=== PATIENT | female | born 1960 | race Caucasian/White ===

== ENCOUNTER 2019-04-28 09:48 | Day surgery (SDC) | payer OTHER ==
[~2019-04-28] VITALS: Ht 162.6 cm; Wt 71.0 kg
[~2019-04-28 09:48] MED LIST: CLIN150 PO; CLIN300 PO; Colace100 MG PO; HYDACE5 PO; IBUP800 PO; PHENY100ER; Percocet 7.5-31 EACH PO; RANI150; SERT100; SULTRIDS PO; SUMA25; Zofran Odt4 MG SL
[2019-04-28] MEDS ORDERED: Calcium Acetat667 MG (10:28)
[2019-04-28] MEDS ORDERED: CENTRUM SILVER1 EAC2 (10:28)
[2019-04-28] MEDS ORDERED: FAMO10 (10:29)
[2019-04-28] MEDS ORDERED: IBUP100S (10:30)
[2019-04-28] MEDS ORDERED: MAVYRET 100-401 EACH (10:31)
--- NOTE | 2019-04-28 10:34 | NUR ---
04/28/19 Mere4 Trang Leigh 1 TRY HAND RIGHT BLEW 2 TRY WRIST LEFT GOOD
== END 2019-04-28 11:53 | disposition home or self-care (01) ==
LOC: ORSCSDS 09:48
PROVIDERS: Internal Medicine Gastroenterology
PROC: 0DJ08ZZ Inspection of Upper Intestinal Tract, Via Natural or Artificial Opening Endoscopic (ICD-10-PCS; principal; 2019-04-28 11:15)
DX: K74.60 Unspecified cirrhosis of liver (principal); B19.20 Unspecified viral hepatitis C without hepatic coma; K44.9 Diaphragmatic hernia without obstruction or gangrene; R93.89 Abnormal findings on diagnostic imaging of other specified body structures; F41.8 Other specified anxiety disorders; J44.9 Chronic obstructive pulmonary disease, unspecified; F31.9 Bipolar disorder, unspecified; F17.210 Nicotine dependence, cigarettes, uncomplicated; Z79.899 Other long term (current) drug therapy
CPT/HCPCS: 82947; J2704; J7120

== ENCOUNTER 2019-05-12 10:16 | Inpatient (IN) | payer OTHER ==
[~2019-05-12] VITALS: Ht 172.7 cm; Wt 65.6 kg
[~2019-05-12 10:16] MED LIST changes: +Calcium Acetat667 MG; +Daily Multiple1 EACH PO; +FAMO10; +IBUP100S; +IMITREX100 MG PO; +MAVYRET 100-401 EACH; -SERT100; +SERT100 PO; -SUMA25
[2019-05-12 10:38] LABS: Hematocrit 38.7 % (33.0-51.0); Hemoglobin 13.7 g/dL (11.5-16.0); Mean Corpuscular HGB 30.5 pg (26.0-34.0); Mean Corpuscular HGB Conc 35.4 g/dL (31.5-36.5); Mean Corpuscular Volume 86 fL (80-100); Mean Platelet Volume 11.9 fL (9.1-12.4); Platelet Count 226 K/mm3 (150-400); RDW Coefficient Variation 13.9 % (11.7-14.2); RDW Standard Deviation 43.1 fL (35.1-46.3); Red Blood Cell Count 4.49 M/mm3 (3.80-5.20); White Blood Cell Count 42.63 K/mm3 (4.00-11.30)
[2019-05-12 10:51] LABS: PCO2 Arterial 37.6 mmHg (35-45); PO2 Arterial 36.7 mmHg (80-100); pH Blood Arterial 7.28 (7.35-7.45)
[2019-05-12 10:53] LABS: International Normalized Ratio 1.57; Prothrombin Time Results 16.4 Sec (9.7-11.5)
[2019-05-12 10:55] LABS: Alanine Aminotransfer (ALT/SGP 14 U/L (12-78); Albumin, Blood 1.7 g/dL (3.4-5.0); Albumin/Globulin Ratio 0.3 (0.8-1.8); Alk Phos 185 U/L (50-136); Anion Gap 15 mmol/L (6-16); Aspartate Aminotrans (AST/SGOT 54 U/L (12-37); Bilirubin, Total 4.2 mg/dL (0.1-1.0); Blood Urea Nitrogen 51 mg/dL (8-24); Bun/Creatinine Ratio 39.8 (12.0-20.0); CO2, Blood 19 mmol/L (21-32); Calcium, Blood 11.2 mg/dL (8.5-10.1); Chloride, Blood 105 mmol/L (98-108); Creatinine, Blood 1.28 mg/dL (0.40-1.00); Globulin, Blood 5.1 g/dL (2.2-4.0); Glomerular Filtration Rate 45 (60-); Glucose, Blood 116 mg/dL (70-99); Potassium, Blood 2.5 mmol/L (3.5-5.5); Sodium, Blood 139 mmol/L (136-145); Total Protein, Blood 6.8 g/dL (6.4-8.2); Troponin I <0.015 ng/mL (0.000-0.040)
[2019-05-12 11:05] LABS: BAND PERCENT MAN 1 % (0-8); BASOPHILS PERCENT MAN 0 % (0-2); EOSINOPHILS PERCENT MAN 0 % (0-6); LYMPHOCYTES PERCENT MAN 4 % (21-46); MONOCYTES PERCENT MAN 0 % (4-13); NEUTROPHILS ABSOLUTE MAN 40.92 K/mm3 (1.96-9.15); SEG NEUTROPHILS PERCENT MAN 95 % (41-73); TOTAL CELLS COUNTED 100
[2019-05-12 12:41] LABS: PCO2 Arterial 44.9 mmHg (35-45); PO2 Arterial 59.9 mmHg (80-100); pH Blood Arterial 7.27 (7.35-7.45)
[2019-05-12] MEDS ORDERED: OMEP20ER PO (12:44)
[2019-05-12] MEDS ORDERED: DOCU100 PO (12:46)
[2019-05-12] MEDS ORDERED: MAVYRET 100-401 EACH PO (14:16)
[2019-05-12] MEDS ORDERED: DIPH50 PO (14:17)
[2019-05-12] MEDS ORDERED: CALCIUM 600 +1 EA11 PO (14:17)
[2019-05-12] MEDS ORDERED: PROAIR RESPICL90 MCG INH (14:18)
[2019-05-12] MEDS ORDERED: EPIPEN0.3 MG/0.3 IM (14:18)
[2019-05-12] MEDS ORDERED: IBUP200 PO (14:18)
[2019-05-12 14:42] LABS: Source, Urine Catheter
[2019-05-12 14:45] LABS: Blood, Urine 1+ (Neg); Glucose Qualitative, Urine Neg (Neg); Ketones, Urine 1+ (Neg); Leukocyte Esterase, Urine 1+ (Neg); Nitrite, Urine Neg (Neg); Protein, Urine 2+ (Neg); Specific Gravity, Urine 1.015 (1.003-1.022); Urobilinogen, Urine 3+ (Normal)
[2019-05-12 14:57] LABS: U Amphetamine Screen Not Detected; U Barbituate Screen Not Detected; U Benzodiazapine Screen DETECTED; U Buprenorphine Screen Not Detected; U Cannabinoids Screen DETECTED; U Cocaine Screen Not Detected; U Methadone Screen Not Detected; U Methamphetamine Screen Not Detected; U Opiates Screen Not Detected; U Oxycodone Screen Not Detected; U Phencyclidine Screen Not Detected; U Propoxyphene Screen Not Detected
[2019-05-12 15:00] LABS: Appearance, Urine Clear (Clear); Bilirubin, Urine 2+ (Neg); Color, Urine Yellow (P-Yellow)
[2019-05-12 15:02] LABS: Red Blood Cells, Urine 0-2 /hpf (0-2); Squamous Epithelial Cells Rare /hpf (Few)
[2019-05-12 15:03] LABS: Amorphous Light (0-Heavy); Bacteria Few /hpf
[2019-05-12 15:29] LABS: Adenovirus Not Detected (NOT DETECT); Coronavirus 229E Not Detected (NOT DETECT); Coronavirus HKU1 Not Detected (NOT DETECT); Coronavirus NL63 Not Detected (NOT DETECT); Coronavirus OC43 Detected (NOT DETECT)
[2019-05-12 15:30] LABS: Bordetella pertussis Not Detected (NOT DETECT); Chlamydophila pneumoniae Not Detected (NOT DETECT); Human Metapneumovirus Not Detected (NOT DETECT); Human Rhinovirus/Enterovirus Not Detected (NOT DETECT); Influenza A/2009-H1 Not Detected (NOT DETECT); Influenza A/H1 Not Detected (NOT DETECT); Influenza A/H3 Not Detected (NOT DETECT); Influenza B Not Detected (NOT DETECT); Mycoplasma pneumoniae Not Detected (NOT DETECT); Parainfluenza Virus 1 Not Detected (NOT DETECT); Parainfluenza Virus 2 Not Detected (NOT DETECT); Parainfluenza Virus 3 Not Detected (NOT DETECT); Parainfluenza Virus 4 Not Detected (NOT DETECT); Respiratory Syncytial Virus Detected (NOT DETECT)
--- NOTE | 2019-05-12 16:13 | NUR ---
ASSUMED ARE OF PATIENT UPON HER ARRIVAL FROM ED AT 1530. ON BIPAP 16/12, 100% FIO2, RR 30-33, TOLERATING WELL BUT ENDORSES BEING ANXIOUS. A&O X 3, VERY [place]. LUNG SOUNDS WITH CRACKLES THROUGHOUT POSTERIOR LUNG MAYA, DIM IN UPPER LOBES. MONTES DRAINING DARK, MIKEL URINE. IVF INFUSING WITHOUT DIFFICULTY, BUT WILL NEED CENTRAL LINE ACCESS HER VEINS ARE QUITE FRAGILE AND SMALL. ENDORSES PAIN IN BUE. USED BEDPAN X 1, NO OUTPUT, IS PASSING GAS.
[2019-05-12] MEDS ORDERED: TIOT18 INH (16:42)
--- NOTE | 2019-05-12 19:27 | NUR ---
SHIFT SUMMARY: MAP DECREASED < 65; SPOKE TO DR. ULLOA IN PERSON, ORDERED LR 1 LITER BOLUS. AFTER BOLUS, BP INCREASED TO 91/58, MAP 72. HAVING SOME ANXIETY, MEDICATED X 1 WITH ATIVAN WITH GOOD EFFECT. POOR URINE OUTPUT, MIKEL. PICC PLACED IN LUZ, FLUSHING AND DRAWING WELL. DAUGHTER AT BEDSIDE SINCE PT ARRIVAL FROM ED.
[2019-05-13 03:54] LABS: Hematocrit 29.6 % (33.0-51.0); Hemoglobin 10.6 g/dL (11.5-16.0); Mean Corpuscular HGB 30.8 pg (26.0-34.0); Mean Corpuscular HGB Conc 35.8 g/dL (31.5-36.5); Mean Corpuscular Volume 86 fL (80-100); Mean Platelet Volume 11.4 fL (9.1-12.4); NRBC ABSOLUTE 0.03 K/mm3 (0.00-0.02); NRBC Auto 0.1 /100 WBC (0.0-0.2); Platelet Count 228 K/mm3 (150-400); RDW Coefficient Variation 14.4 % (11.7-14.2); Red Blood Cell Count 3.44 M/mm3 (3.80-5.20); White Blood Cell Count 30.39 K/mm3 (4.00-11.30)
[2019-05-13 04:13] LABS: Albumin, Blood 1.4 g/dL (3.4-5.0); Albumin/Globulin Ratio 0.3 (0.8-1.8); Bilirubin, Total 3.7 mg/dL (0.1-1.0); Bun/Creatinine Ratio 43.6 (12.0-20.0); Calcium, Blood 9.4 mg/dL (8.5-10.1); Creatinine, Blood 1.17 mg/dL (0.40-1.00); Globulin, Blood 4.2 g/dL (2.2-4.0); Magnesium, Blood 1.9 mg/dL (1.6-2.4); Phosphorus, Blood 3.4 mg/dL (2.5-4.9); Potassium, Blood 3.5 mmol/L (3.5-5.5); Total Protein, Blood 5.6 g/dL (6.4-8.2)
--- NOTE | 2019-05-13 04:30 | NUR ---
SHIFT SUMMARY PATIENT SLEPT WELL THROUGH MOST OF NIGHT. RESPIRATORY EFFORT SLIGHTLY IMPROVED; WAS ABLE TO DECREASE FIO2 TO 80%, SETTINGS CHANGED TO AVAP PER RT, ABLE TO TURN SIDE TO SIDE WITH MINIMAL EXERTION, TOLERATING SOME ACTIVITY/CONVERSATION UNDER THE BIPAP. NO ATTEMPT WAS MADE TO REMOVE MASK HOWEVER. DOES STATES LESS ANXIOUS THAN PREVIOUS. WAS STARTED ON LEVOPHED EARLIER IN SHIFT FOR HYPOTENSION, SEE EMAR. FAMILY PRESENT AT BEDSIDE THROUGH NIGHT. VSS. NO C/O PAIN. ASSESSMENT IS CHARTED. WILL CONTINUE TO MONITOR.
[2019-05-13 05:29] LABS: BAND PERCENT MAN 5 % (0-8); BASOPHILS PERCENT MAN 0 % (0-2); EOSINOPHILS PERCENT MAN 0 % (0-6); LYMPHOCYTES ABSOLUTE MAN 1.82 K/mm3 (0.84-5.20); LYMPHOCYTES PERCENT MAN 6 % (21-46); MONOCYTES PERCENT MAN 0 % (4-13); MYELOCYTE PERCENT MAN 2 % (0-0); NEUTROPHILS ABSOLUTE MAN 27.95 K/mm3 (1.96-9.15); SEG NEUTROPHILS PERCENT MAN 87 % (41-73); TOTAL CELLS COUNTED 100
--- NOTE | 2019-05-13 07:13 | NUR ---
BEGINNING OF SHIFT Assumed care of pt at 0700. Bedside report received from Artur RICKETTS. Pt on BiPAP AVAPS EPAP 15 and FiO2 80%. SpO2 93%. SR, rate 108, with several PACs and PVCs. Pt placed in contact/droplet isolation for RSV.
--- NOTE | 2019-05-13 08:15 | NUR ---
UPDATE Levophed 18 mcg/min at this time. Pt's rings removed per family request at pt has BUE edema.
--- NOTE | 2019-05-13 12:24 | NUR ---
update Dr Hensley in to see pt. Pt remains on BiPAP with unchanged settings. Levophed currently 12 mcg/min. Pt's daughter in room, visiting. Verbalizes understanding of plan of care. No new orders from Dr Hensley at this time.
--- NOTE | 2019-05-13 14:00 | NUR ---
UPDATE - INTUBATION Dr Melendrez in room to see pt 1250. Provider states plan for intubation. Pt intubated at 1310 with 8.0 cm ETT, initially 24 cm GIANCARLO. Pt received 100 mg propofol during procedure. Placed on ventilator at 1317 AC 18/400/15/100%. SpO2 90% or greater. OG tube inserted by weigher and chargerMitzi. X-Ray obtained for tube placement. ETT placmement changed by RT Mcmahon, now placement is 22 cm GIANCARLO. Propofol initially started at 35 mcg/kg/min, titrated up to 50 mcg/kg/min due to continued agitation and noncomplaince with ventilator. Levophed titrated back up to 20 mcg/min and LR bolus administered due to hypotension.
--- NOTE | 2019-05-13 14:30 | NUR ---
UPDATE Pt agitated, moving all extremities and thrashing in bed. With this activity, SpO2 decreased to 69%. At this time, propofol at 60 mcg/kg/min. Agitatation resolved with administration of fentanyl. Levophed at 20 mcg/min. Dr Melendrez states for vasopressin to be started for continued hypotension. Awaiting medication from pharmacy.
[2019-05-13 15:07] LABS: PCO2 Arterial 45.9 mmHg (35-45); PO2 Arterial 81.6 mmHg (80-100); pH Blood Arterial 7.28 (7.35-7.45)
--- NOTE | 2019-05-13 17:51 | NUR ---
OG TUBE REMOVED Bulge noted in pt's neck. valve assembler called into room. Dr Melendrez notifed. CXR obtained to rule out tracheal deviation and pneumothorax. Per CXR, OG tube coiled in pharynx. To be removed immediately per radiologist. This RN removed OG tube. Large, golf ball - sized mass of larson/red sputum on end of OG tube.
--- NOTE | 2019-05-13 18:22 | NUR ---
SUMMARY Pt started shift on BiPAP. Pt unable to have break from BiPAP due to respiratory distress. Pt intubated at 1310 with 8.0 cm ETT. At this time, ETT is 22 cm GIANCARLO. Vent settings AC 18/400/15/90%. SpO2 90% or greater. Scant amount of sputum suctioned from ETT. Sputum sample sent by [facility]. Suctioning of oral cavity has produced copious amounts of thick, tenacious, sticky, semi-solid sputum larson/brown in color with red streaking. A mass of sputum, of the same description, was removed when OG tube was removed due to coiling in the pharynx. OG tube removed. No additional attempts for insertion until tomorrow, per Dr Melendrez. Pt has not correctly, or comprehensibly answered A&O questions prior to intubation. Pt has unequal pupils. Per pt's daughter, pt's pupils are typically asymmetrical since pt had brain surgery in 1970s. At this time, pt is on 18 mcg/min levophed, vasopressin. BP stable. HR 99, sinus rhythm with PACs and PVCs. Propofol 60 mcg/kg/min. Will continue to closely monitor until care handoff and bedside report with oncoming RN.
[2019-05-14 04:36] LABS: Hematocrit 28.1 % (33.0-51.0); Hemoglobin 9.6 g/dL (11.5-16.0); Mean Corpuscular HGB 30.6 pg (26.0-34.0); Mean Corpuscular HGB Conc 34.2 g/dL (31.5-36.5); Mean Platelet Volume 10.7 fL (9.1-12.4); NRBC ABSOLUTE 0.02 K/mm3 (0.00-0.02); NRBC Auto 0.1 /100 WBC (0.0-0.2); Platelet Count 179 K/mm3 (150-400); RDW Coefficient Variation 14.9 % (11.7-14.2); RDW Standard Deviation 47.8 fL (35.1-46.3); Red Blood Cell Count 3.14 M/mm3 (3.80-5.20); White Blood Cell Count 24.18 K/mm3 (4.00-11.30)
[2019-05-14 04:42] LABS: Mean Corpuscular Volume 90 fL (80-100)
[2019-05-14 04:55] LABS: Anion Gap 6 mmol/L (6-16); Blood Urea Nitrogen 43 mg/dL (8-24); Bun/Creatinine Ratio 46.2 (12.0-20.0); CO2, Blood 24 mmol/L (21-32); Calcium, Blood 8.7 mg/dL (8.5-10.1); Chloride, Blood 108 mmol/L (98-108); Creatinine, Blood 0.93 mg/dL (0.40-1.00); Glomerular Filtration Rate >60 (60-); Glucose, Blood 152 mg/dL (70-99); Magnesium, Blood 1.8 mg/dL (1.6-2.4); Phosphorus, Blood 4.4 mg/dL (2.5-4.9); Potassium, Blood 3.7 mmol/L (3.5-5.5); Sodium, Blood 138 mmol/L (136-145)
[2019-05-14 06:16] LABS: BAND PERCENT MAN 6 % (0-8); BASOPHILS PERCENT MAN 0 % (0-2); EOSINOPHILS PERCENT MAN 0 % (0-6); LYMPHOCYTES ABSOLUTE MAN 1.45 K/mm3 (0.84-5.20); LYMPHOCYTES PERCENT MAN 6 % (21-46); METAMYELOCYTE ABSOLUTE MAN 0.72 K/mm3 (0.00-0.00); METAMYELOCYTE PERCENT MAN 3 % (0-0); MONOCYTES ABSOLUTE MAN 0.48 K/mm3 (0.16-1.47); MONOCYTES PERCENT MAN 2 % (4-13); MYELOCYTE ABSOLUTE MAN 0.72 K/mm3 (0.00-0.00); MYELOCYTE PERCENT MAN 3 % (0-0); NEUTROPHILS ABSOLUTE MAN 20.79 K/mm3 (1.96-9.15); SEG NEUTROPHILS PERCENT MAN 80 % (41-73); TOTAL CELLS COUNTED 100
--- NOTE | 2019-05-14 07:15 | NUR ---
BEGINNING OF SHIFT Assumed care at 0700. Bedside report recieved from Artur RICKETTS. Pt sedated with propofol at 60 mcg/kg/min. Pt responsive to pain. Mechanically ventilated via 8.0 cm ETT 22 cm GIANCARLO. Ventilator settings AC 18/400/15/60%. SpO2 90% or greater. Lungs clear in upper lobes, diminished in lower lobes. Small amount of larson sputum with red streaking obtained through inline suction. No OG tube in place. Bravo cathter in place for strict measurment of fluid output. ST per monitor, rate 105. Patient receiving levophed at 8 mcg/min. Vasopressin off.
--- NOTE | 2019-05-14 10:16 | NUR ---
SEDATION VACATION At 0745, propofol changed from 60 mcg/kg/min to standby. Remained on standby until 1015, as pt began coughing. During sedation vacation, pt opened eyes when asked to do so, but did not follow any additional commands. During sedation vacation, SpO2 remained 90% or greater. RR 18-24. Pt currently on 2 mcg/min levophed.
--- NOTE | 2019-05-14 10:45 | NUR ---
DR ULLOA IN ROOM Discussed pt's mentation. Provider states for propofol to be turned off again to achieve more assessment of mentation. Pt grimaces when provider moves pt's chin towards chest. Will continue to reasses.
--- NOTE | 2019-05-14 11:00 | NUR ---
OG TUBE PLACED Tube placed per verbal order from Dr Melendrez. Placed by this RN with assist from zinc furnace charger, Mitzi. Placement verified by auscultating abdomen while injecting with 50 mL air. Unable to aspirate gastric contents. Dr Melendrez update. Will verify placement with xray prior to initiating tube feeds.
--- NOTE | 2019-05-14 11:05 | NUR ---
AGITATION OG tube inserted. Pt agitated, pulling on restraints and coughing. Dr Melendrez in room. Propofol restarted at 30 mcg/kg/min. IV Fentanyl given.
--- NOTE | 2019-05-14 11:15 | NUR ---
CHEST X RAY Pt in bed, much more calm with 30 mcg/kg/min propofol. X-Ray tech obtains portable X-Ray. Dr Melendrez immediately reviews X-Ray. New pneumothorax present. Plan for chest tube insertion.
--- NOTE | 2019-05-14 12:00 | NUR ---
CHEST TUBE INSERTION Chest tube inserted by Dr Melendrez to right anterior chest. Propofol increased to 60 mcg/kg/min during procedure. Pt also received 100 mcg fentanyl per verbal order from Dr Melendrez. Levophed restarted and titrated up to 10 mcg/min to maintain MAP greater than 65. Chest tube at -20 cm suction. No air leak. No crepitus noted to site. Woodlyn drainage into pleuro vac. Sample obtained and set to lab. Vent settings AC 18/400/10/60%. SpO2 90% or greater.
[2019-05-14 12:08] LABS: Automated BF RBC Count 0.055 M/mm3 (0-0); RBC Count, Body Fluid 55000 /mm3 (0-0)
[2019-05-14 12:30] LABS: Vancomycin, Trough 19.1 ug/mL (5.0-10.0)
[2019-05-14 12:33] LABS: Body Fluid WBC Count 144300 /mm3 (0-999)
[2019-05-14 12:37] LABS: Total Cell Count, Body Fluid 100
[2019-05-14 12:43] LABS: Appearance, Body Fluid Turbid (Clear); Color, Body Fluid Red (None-Yellow)
--- NOTE | 2019-05-14 13:45 | NUR ---
DR ULLOA IN ROOM Pt currently sedated with propofol 60 mcg/kg/min. Also receiving levophed 5 mcg/min. Received ativan and fentanyl IV push. Pt double-stacking every 5-[address] Ulloa aware. No additional orders at this time. Vent settings currently AC 18/400/12/60%.
--- NOTE | 2019-05-14 15:30 | NUR ---
VENTILATOR SETTINGS CHANGED SpO2 decreased to 78-79%. RT notified. This RN suctioned in-line. No improvement noted. FiO2 increased. New vent settings AC 18/400/12/100%. No changes to chest tube. Call placed to Dr Melendrez. No new orders at this time.
--- NOTE | 2019-05-14 18:15 | NUR ---
SUMMARY At this time, pt remains sedated with 60 mcg/kg/min propofol with frequent IV push fentanyl for ventilator tolerance. Currently responsive to painful stimulus. Gag and cough reflexes noted. Mechanically ventilated via 8.0 cm ETT 22 cm GIANCARLO. Ventilator settings AC 18/400/12/100%. SpO2 98%. Right anterior chest tube has had 15 mL of millky red drainage. Chest tube to -20 cm suction. +1 air leak. No crepitus noted to site. OG tube inserted this shift. Tube feeds currently running per orders. 0 mL residual measured. SR per monitor, no PACs or PVCs noted. Levophed at 5 mcg/min. Current BP 96/66. 1+ edema BUE and BLE. Bravo catheter in place, draining sai urine. 625 mL urine output this shift. Pt's daughter at bedside for majority of shift, asking questions and participating in pt's care.
--- NOTE | 2019-05-14 22:13 | NUR ---
05/13 @ 21:30 NOTICED LACK OF AIR LEAK IN PLEUREVAC. IMMEDIATELY ASSESSED PATIENT, ALL CONNECTIONS SECURE, NO S/S OF RESPIRATORY DISTRESS, IF ANYTHING NOTICING MORE AUDIBLE BREATH SOUNDS IN RIGHT UPPER LOBE. NO CHANGE IN TIDAL VOLUMES, PEAK PRESSURES ON VENTILATOR. VSS. CALLED DR. ULLOA. PER DR. ULLOA, NO NEW ORDERS CURRENTLY SINCE CONDITION STABLE, BUT IF THERE IS ANY DECLINE IN RESPIRATORY STATUS, GET A STAT CHEST XRAY AND CALL DR ULLOA IMMEDIATELY. VSS. WILL CONTINUE TO MONITOR.
[2019-05-15 04:51] LABS: Anion Gap 6 mmol/L (6-16); Blood Urea Nitrogen 36 mg/dL (8-24); Bun/Creatinine Ratio 38.4 (12.0-20.0); CO2, Blood 24 mmol/L (21-32); Calcium, Blood 8.7 mg/dL (8.5-10.1); Chloride, Blood 111 mmol/L (98-108); Creatinine, Blood 0.94 mg/dL (0.40-1.00); Glomerular Filtration Rate >60 (60-); Glucose, Blood 114 mg/dL (70-99); Magnesium, Blood 1.8 mg/dL (1.6-2.4); Potassium, Blood 3.3 mmol/L (3.5-5.5); Sodium, Blood 141 mmol/L (136-145)
--- NOTE | 2019-05-15 05:54 | NUR ---
SHIFT SUMMARY PATIENT HAD AN EVENTFUL NIGHT. AFTER PLUG CLEARED EARLIER BY DR. ULLOA, WAS ABLE TO DECREASE VENTILATOR FIO2 TO 60%, HOWEVER NOW INCREASED TO 70%, OBTAINING STAT CHEST X-RAY. INCREASED LEVOPHED I DID EARLIER WHEN PNEUMO WAS PRESENT. HAVE NOT GOTTEN ANYTHING FROM ET SUCTIONING, IN THE LAST HOUR HOWEVER HAVE BEEN ABLE TO SUCTION LARGE AMOUNT OF THICK LOCKHART SPUTUM FROM LUNGS. MAINTAINED PROPOFOL @ 60 MCG/KG/MIN. DID HAVE TO GIVE FENTANYL IVP A COUPLE OF TIMES FOR COUGHING AROUND VENTILATOR, SEE EMAR. ASSESSMENT IS CHARTED. NO C/O PAIN. VSS. AWAITING CHEST X-RAY. WILL CONTINUE TO MONITOR.
--- NOTE | 2019-05-15 06:17 | NUR ---
05/14 @ [address] ULLOA OF POSSIBLE NEW PNEUMOTHORAX. AIR LEAK STILL PRESENT IN PLEUREVAC, ALL CONNECTIONS CHECKED, SECURE AND TIGHT, NO CUFF LEAK, NO CREPITUS NOTED. HEMODYNAMICALLY STABLE. HAVE INCREASED FIO2 FROM 60% TO75%, MAINTAINING SPO2 ~ 92%. DR. ULLOA IS ON HIS WAY. WILL CONTINUE TO MONITOR.
--- NOTE | 2019-05-15 07:53 | NUR ---
Received report from Baylee RICKETTS. Patient on her left side with HOB at 30 degrees. She is intubated with 8.0 ET and is 22cm at lips with vent settings AC 18, TV 400, FiO2 75% and PEEP 12 and sats 95%. She has shes tube to upper right anterior of chestand suction medium with minimal out put. She has PICC line to LUZ dressing intact and site WNL's and is infusing Levophed at 7 mcg/min and systolic 98 and MAP 72, Propofol 60 mcg/kg/min, LR at 125ml/hr. Patient has og infusing at 35ml/hr with 30ml water flushes Q4. Holding Loveniox this am for possible LP procedure. Patient has 16Fr mcguire draining to gravity yellow urine.; Patint withdraws to painful stimuli.
--- NOTE | 2019-05-15 10:53 | NUR ---
No significant changes with gtt, vent setting or patient. Dr Melendrez in to see patient and states will re-evaluate for chest tube replacement. Chest xray slightly worse.
--- NOTE | 2019-05-15 11:30 | NUR ---
No sitgnificant changes in Gtt's or vent settings. patient's systolic 90-110's with MAPS >65. Her sats on same vent settings are low top mid 90%'s. family came in and Dr Melendrez gave her updates. Plan is still to get xchest xray at 1300 and reevaluate for new chest tube.
--- NOTE | 2019-05-15 13:30 | NUR ---
Chest xray done and Dr Melendrez spoke with daughter and will try to mplace larger chest tube and was agreeable. VSS see EMR. Do changes in VS, Gtt's, vent settings.
--- NOTE | 2019-05-15 15:30 | NUR ---
Dr Melendrez tried chest tube in lateral right using 28 first and 32 the 2nd time which remain in. The tube kept dropping and and he decided tp p[lace smaller coiled chest tube. Sats dropped each time rolled her to her sides. Stopped TF as she has over 700ml ion stomach and pulled and did not reinstill , ok with Dr Melendrez. Repositioned her Q2 and. VSS currently stable.
--- NOTE | 2019-05-15 18:17 | NUR ---
MESSAGE LEFT WITH [facility] REGARDING POSSIBILITY OF VAPE ASSOCIATED LUNG INJURY.
--- NOTE | 2019-05-15 18:36 | NUR ---
Patiernt resting comfortable Vent settings changed after last chest tune anterior upper right shest to midline with small coiled chest tube. Pulled uricil chest tube from anterior upper right chest asn possibly displaced during rolling for other chest tubes. He current setting are AC 18, TV 400, FiO2 75% and PEEP 15 and sast mid to upper 90%'s. Had to increase Propofol to 80mcg/kg/min for double breathing per dr Melendrez. She was bleeding from Uricil site so changed dressing and placed pressure dressing over. Levophed needed to be increased to 20mcg/min during chest tube placements and changes and has been reduced to 10mcg/min.
[2019-05-16 03:50] LABS: Hematocrit 27.4 % (33.0-51.0); Hemoglobin 9.5 g/dL (11.5-16.0); Mean Corpuscular HGB Conc 34.7 g/dL (31.5-36.5); Mean Corpuscular Volume 90 fL (80-100); Mean Platelet Volume 10.8 fL (9.1-12.4); NRBC ABSOLUTE 0.02 K/mm3 (0.00-0.02); NRBC Auto 0.1 /100 WBC (0.0-0.2); Platelet Count 208 K/mm3 (150-400); RDW Coefficient Variation 15.9 % (11.7-14.2); Red Blood Cell Count 3.06 M/mm3 (3.80-5.20); White Blood Cell Count 25.89 K/mm3 (4.00-11.30)
[2019-05-16 04:10] LABS: Alanine Aminotransfer (ALT/SGP 15 U/L (12-78); Albumin, Blood 1.3 g/dL (3.4-5.0); Albumin/Globulin Ratio 0.3 (0.8-1.8); Alk Phos 75 U/L (50-136); Anion Gap 5 mmol/L (6-16); Aspartate Aminotrans (AST/SGOT 34 U/L (12-37); Blood Urea Nitrogen 27 mg/dL (8-24); Bun/Creatinine Ratio 32.3 (12.0-20.0); CO2, Blood 24 mmol/L (21-32); Calcium, Blood 8.8 mg/dL (8.5-10.1); Chloride, Blood 111 mmol/L (98-108); Creatinine, Blood 0.84 mg/dL (0.40-1.00); Globulin, Blood 4.9 g/dL (2.2-4.0); Glomerular Filtration Rate >60 (60-); Glucose, Blood 120 mg/dL (70-99); Magnesium, Blood 1.9 mg/dL (1.6-2.4); Phosphorus, Blood 2.4 mg/dL (2.5-4.9); Potassium, Blood 3.8 mmol/L (3.5-5.5); Sodium, Blood 140 mmol/L (136-145); Total Protein, Blood 6.2 g/dL (6.4-8.2)
[2019-05-16 04:17] LABS: BAND PERCENT MAN 1 % (0-8); BASOPHILS PERCENT MAN 0 % (0-2); EOSINOPHILS PERCENT MAN 0 % (0-6); LYMPHOCYTES ABSOLUTE MAN 0.51 K/mm3 (0.84-5.20); LYMPHOCYTES PERCENT MAN 2 % (21-46); MONOCYTES ABSOLUTE MAN 0.25 K/mm3 (0.16-1.47); MONOCYTES PERCENT MAN 1 % (4-13); MYELOCYTE ABSOLUTE MAN 0.25 K/mm3 (0.00-0.00); MYELOCYTE PERCENT MAN 1 % (0-0); NEUTROPHILS ABSOLUTE MAN 24.85 K/mm3 (1.96-9.15); SEG NEUTROPHILS PERCENT MAN 95 % (41-73); TOTAL CELLS COUNTED 100
[2019-05-16 05:37] LABS: PCO2 Arterial 38.9 mmHg (35-45); PO2 Arterial 54.6 mmHg (80-100); pH Blood Arterial 7.38 (7.35-7.45)
--- NOTE | 2019-05-16 06:09 | NUR ---
SHIFT SUMMARY PATIENT WAS KEPT SEDATED THROUGH NIGHT. SOME FIGHTING AGAINST VENTILATOR, GAVE ATIVAN PRIOR TO BATH, DID NOT HELP. AVOIDED FENTANYL BOWEL TONES VERY HYPOACTIVE, DID NOT PROCESS TUBE FEEDINGS YESTERDAY. RELIEVED WITH REST. LUNGS APPEAR INFLATED ON MORNING CHEST X-RAY! WAS ABLE TO DECREASE FIO2 TO 50%, DR. ULLOA DECREASED PEEP TO 12 AT BEGIN OF SHIFT. BATH COMPLETED, TURNED EVERY 2 HOURS. WILL REPLACE ELECTROLYTES PER PROTOCOL. ASSESSMENT IS CHARTED. VSS. WILL CONTINUE TO MONITOR.
--- NOTE | 2019-05-16 08:56 | NUR ---
CARE ASSUMED CARE AND REPORT ASSUMED FROM GASPER RICKETTS. PT INTUBATED AND SEDATED. VENT AC 18, TV 400, PEEP 12, FIO2 60%. LUNG SOUNDS DIMINISHED BUT CLEAR THROUGHOUT. ANTERIOR CHEST TUBE SECURED, AIRLEAK, NO CREPITUS. RIGHT LATERAL CHEST TUBE SECURED, SEROSANGUINOUS OUTPUT, NO AIRLEAK, NO CREPITUS. OCCLUSIVE DRESSING SECURED ON R CHEST FROM CHEST TUBE REMOVAL; DRESSING IS CLEAN AND DRY. LR INFUSING AT 125 ML/HR PER ORDER. LEVOPHED GTT AT 10 MCG. PROPOFOL GTT INFUSING AT 70 MCG; WILL INQUIRE ABOUT SECONDARY SEDATION. BUE RESTRAINED. PUPILS BRISK; L SLIGHTLY LARGER THAN R. PT GENERALLY EDEMATOUS. MAGNESIUM AND POTASSIUM PHOSPHATE REPLACED AND INFUSING. WILL CONTINUE TO MONITOR.
--- NOTE | 2019-05-16 12:13 | NUR ---
REASSESSMENT PT REMAINS INTUBATED AND SEDATED ON PROPOFOL 50 MCG. FENTANYL 50 MCG GIVEN FOR PAIN AND SEDATION ADJUNCT. CHEST TUBES REMAIN SECURED WITH AIR LEAK FROM ANTERIOR TUBE. LUNG SOUNDS REMAIN DIMINISHED ON R SIDE BUT CLEAR. VENT AC 18, TV 400, PEEP 12, FIO2 65%. ATTEMPTING TO REDUCE PEEP BUT PT UNABLE TO MAINTAIN ADEQUATE OXYGENATION FURING REDUCTION TRIAL. TF RESTARTED PER DIETARY CONSULT; STARTED AT 10 ML/HR. MIV TURNED OFF; TKO INFUSES. LEVOPHED GTT INFUSING AT 10 MCG. BUE REMAIN RESTRAINED. WILL CONTINUE TO MONITOR.
[2019-05-16 16:37] LABS: Magnesium, Blood 2.3 mg/dL (1.6-2.4); Phosphorus, Blood 3.1 mg/dL (2.5-4.9); Potassium, Blood 4.8 mmol/L (3.5-5.5)
--- NOTE | 2019-05-16 18:24 | NUR ---
SHIFT SUMMARY PT REMAINED SEDATED MOST OF DAY. ATTEMPTED TO PERFORM SEDATION VACATION AND PT WAS ONLY ABLE TO REMAIN OFF SEDATION FOR 45 MINUTES BEFORE HER RR INCREASED TO 50S. PROPOFOL GTT INFSUING AT 50 MCG. LEVOPHED GTT INFUSED AT 10 MCG AND CONTINUES TO INFUSE. TF RESTARTED TODAY WITH PIVOT 1.5 AT 10 ML/HR; TOLERATING WELL WITH MINIMAL RESIDUAL. BUE REMAIN RESTRAINED. ROM PERFORMED FEW TIMES DURING SHIFT. VENT CURRENTLY AT PS 18/TV 400/ PEEP 10, FIO2 60%. 2 CHEST TUBES REMAIN WITH LEAK IN ANTERIOR TUBE. NO CREPITUS. HAS REMAINED IN NSR ENTIRE SHIFT; HR 70-90S. WILL GIVE BEDSIDE, HANDOFF REPORT TO OTIS RN.
[2019-05-17 04:26] LABS: BASOPHILS ABSOLUTE AUTO 0.05 K/mm3 (0.00-0.23); BASOPHILS PERCENT AUTO 0 % (0-2); EOSINOPHILS ABSOLUTE AUTO 0.03 K/mm3 (0.00-0.68); EOSINOPHILS PERCENT AUTO 0 % (0-6); Hematocrit 27.2 % (33.0-51.0); Hemoglobin 9.3 g/dL (11.5-16.0); IMMATURE GRAN ABSOLUTE AUTO 1.42 K/mm3 (0.00-0.10); IMMATURE GRAN PERCENT AUTO 7 % (0-1); LYMPHOCYTES ABSOLUTE AUTO 0.88 K/mm3 (0.84-5.20); LYMPHOCYTES PERCENT AUTO 4 % (21-46); MONOCYTES ABSOLUTE AUTO 0.39 K/mm3 (0.16-1.47); MONOCYTES PERCENT AUTO 2 % (4-13); Mean Corpuscular HGB 30.8 pg (26.0-34.0); Mean Corpuscular HGB Conc 34.2 g/dL (31.5-36.5); Mean Corpuscular Volume 90 fL (80-100); NEUTROPHILS ABSOLUTE AUTO 18.32 K/mm3 (1.96-9.15); NEUTROPHILS PERCENT AUTO 87 % (41-73); Platelet Count 210 K/mm3 (150-400); RDW Coefficient Variation 15.9 % (11.7-14.2); Red Blood Cell Count 3.02 M/mm3 (3.80-5.20); White Blood Cell Count 21.09 K/mm3 (4.00-11.30)
[2019-05-17 04:45] LABS: Anion Gap 3 mmol/L (6-16); Blood Urea Nitrogen 23 mg/dL (8-24); Bun/Creatinine Ratio 32.8 (12.0-20.0); CO2, Blood 26 mmol/L (21-32); Calcium, Blood 8.5 mg/dL (8.5-10.1); Chloride, Blood 113 mmol/L (98-108); Glomerular Filtration Rate >60 (60-); Glucose, Blood 122 mg/dL (70-99); Magnesium, Blood 2.3 mg/dL (1.6-2.4); Phosphorus, Blood 2.9 mg/dL (2.5-4.9); Sodium, Blood 142 mmol/L (136-145)
--- NOTE | 2019-05-17 05:56 | NUR ---
SHIFT SUMMARY PATIENT SLEPT WELL THROUGH NIGHT. RESPIRATORY BARAKAT, HAVE NOT MADE MUCH HEADWAY IN DECREASING OXYGEN NEEDS, DECREASED FIO2 FROM 60% TO 55%. MINIMAL OUTPUT FROM CHEST TUBES, ABOUT 30 mL FROM EACH TUBE. NO CHANGE IN CHEST TUBE AIR LEAKS. LUNG SOUNDS REMAINS MOSTLY CLEAR THROUGHOUT. SMALL RED-TINGED SPUTUM NOTED ON ETT SUCTIONING. WAS ABLE TO TOLERATE TURNING/BATH MUCH BETTER TONIGHT THAN LAST 3 NIGHTS, NO DESATURATIONS WITH TURNING/REPOSITIONING. HAVE DECREASED PROPOFOL DRIP FROM 50 TO CURRENTLY 20 MCG/KG/MIN, STILL APPEARS HEAVILY SEDATED. WILL GIVE PRN ATIVAN IF NEEDED. HAVE AVOIDED FENTANYL DUE TO HYPOACTIVE BOWEL. WOULD LIKE TO SEE PATIENT STARTED ON REGLAN, HAS NOT PROCESSED ANY TUBE FEEDING THAT WAS INSTILLED TODAY. VOMITTED SOME SMALL AMMOUNT UP WHEN TURNING AT MIDNIGHT, DID NOT RESTART TUBE FEEDS THE REST OF THE NIGHT. AT BEGIN OF SHIFT, NOTED PATIENT HAD ABOUT 300 ML RESIDUAL, RECEIVED THE OK TO REINSTILL AND RESTART TUBE FEEDS PER DR. PRUITT. I INITIALLY RESTRARTED THE TUBE FEEDS, HOWEVER TURNED THEM OFF AFTER THE EMESIS INCIDENT. NO TUBE FEED WAS NOTED WHEN ETT SUCTIONED, ORAL CARE PROVIDED. WHEN I CHECKED RESIDUAL AGAIN AT 04:00, STILL HAD ABOUT 350 mL, REINSTILLED, STILL DID NOT RESTART TUBE FEED. WOULD REALLY LIKE TO SEE PATIENT STARTED ON REGLAN OR OTHER BOWEL STIMULANT TODAY, WILL SUGGEST TO DAY SHIFT. OTHER THAN THAT, PATIENT HAD AN UNEVENTFUL NIGHT. ASSESSMENT IS CHARTED. VSS. NO C/O PAIN. WILL CONTINUE TO MONITOR.
--- NOTE | 2019-05-17 06:21 | NUR ---
UPDATE LILIAM GONZALES SPOKE WITH INFECTIOUS CONTROL REGARDING ISOLATION PRECAUTIONS FOR THIS PATIENT. PER INFECTION CONTROL, ADULT PATIENTS WHO TEST POSITIVE AT ANY POINT IN THEIR HOSPITAL STAY ARE TO REMAIN IN CONTACT and DROPLET ISOLATION FOR THE ENTIRETY OF THEIR STAY.
--- NOTE | 2019-05-17 06:56 | NUR ---
UPDATE PATIENT VOMITTED AGAIN, WAS NOT DISTURBED IN THE LAST HOUR, WAS SITTING UP AT A 45 DEGREE ANGLE, HOWEVER HAD SLUMPED OVER SLIGHTLY. NO GASTRIC CONTENT NOTED UPON ETT SUCTIONING, ORAL CARE PROVIDED. TF STILL NOT INFUSING.
--- NOTE | 2019-05-17 07:30 | NUR ---
BEGINNING OF SHIFT Assumed care at 0700. Bedside report recieved from Artur RICKETTS. Pt sedated with propofol at 20 mcg/kg/min. Responsive to painful stimulus. Mechanically ventilated via 8.0 cm ETT, 22 cm GIANCARLO. AC 18/400/10/60%. Pt breathing over ventilator, RR 24-28. Double stacking breaths. Propofol incrementally increased up to 50 mcg/kg/min. Pt continues to be tacypnic and double stacking breaths, but not as much as before. Pt has two chest tubes- right anterior and right lateral. Both chest tubes to -20 cm suction. Serosanguinous drainage into each chest tube. SR per monitor. Pt on levophed 10 mcg/min. OG tube clamped due to large measured residuals. Will continue to reassess. Absent BT. Pt has not had a bowel movement for 6 days. Plan to give dulcolax suppository. Bravo catheter for strict measurement of fluid intake and output.
--- NOTE | 2019-05-17 09:00 | NUR ---
OG TUBE RESIDUALS This RN aspriated 225 mL of fluid from OG tube. Dr Sanchez notified. 100 mL reinstilled as pt to received approx 100 mL of meds and flushes. Provider stated to stop checking residuals. Discussed that pt has had vomiting. Plan to give reglan, keep tube feedings on standby, and reassess at noon.
--- NOTE | 2019-05-17 10:43 | NUR ---
DR SANCHEZ IN ROOM Pt double-stacking breaths despite increase in propofol, IV push fentanyl and ativan, and fentanyl drip. Ventilator settings AC 18/400/10/75%. Dr Sanchez notified. Provider changed ventilator settings to pressure support 5 with PEEP 8 and FiO2 75% RR 12-14. SpO2 90% or greater. Tidal volumes 600-650 mL. Pt continues with fentanyl drip and propofol at 60 mg/kg/min, Dr Sanchez aware. RT, José aware.
--- NOTE | 2019-05-17 13:10 | NUR ---
HYPOVENTILATION Pt remains on pressure support. Tidal volumes 400-500 mL, but RR 8-9 breaths per minute. SpO2 remains 90% or greater. Dr Sanchez notified. Provider states sedation may be titrated down at this time. Propofol decreased to 40 mcg/kg/min. Will continue to reassess. Right anterior chest tube no longer as air leak. Dr Sanchez aware. Chest X-Ray reviewed by provider. Plan to continue with pt on PS.
--- NOTE | 2019-05-17 15:00 | NUR ---
UPDATE Propofol at 20 mcg/kg/min. Fentanyl drip stopped. Venilator settings PS 5/5 with 80% FiO2. Levophed at 10 mcg/min. Plan to titrate down.
--- NOTE | 2019-05-17 17:57 | NUR ---
SUMMARY At this time, pt responsive to painful stimulus. Sedated with propofol 20 mcg/kg/min. Remains on PS 5/5 with 80% FiO2. SpO2 95%. This RN has not aspirated any sputum from ETT. Levophed at 8 mcg/min. SR per monitor. Family at bedside. Will continue to closely monitor until care handoff and bedside report with oncoming RN.
[2019-05-18 04:03] LABS: BASOPHILS ABSOLUTE AUTO 0.05 K/mm3 (0.00-0.23); BASOPHILS PERCENT AUTO 0 % (0-2); EOSINOPHILS ABSOLUTE AUTO 0.05 K/mm3 (0.00-0.68); EOSINOPHILS PERCENT AUTO 0 % (0-6); Hematocrit 29.3 % (33.0-51.0); Hemoglobin 9.6 g/dL (11.5-16.0); IMMATURE GRAN ABSOLUTE AUTO 1.25 K/mm3 (0.00-0.10); IMMATURE GRAN PERCENT AUTO 6 % (0-1); LYMPHOCYTES ABSOLUTE AUTO 0.58 K/mm3 (0.84-5.20); LYMPHOCYTES PERCENT AUTO 3 % (21-46); MONOCYTES ABSOLUTE AUTO 0.41 K/mm3 (0.16-1.47); MONOCYTES PERCENT AUTO 2 % (4-13); Mean Corpuscular HGB 30.5 pg (26.0-34.0); Mean Corpuscular HGB Conc 32.8 g/dL (31.5-36.5); Mean Platelet Volume 10.4 fL (9.1-12.4); NEUTROPHILS ABSOLUTE AUTO 18.01 K/mm3 (1.96-9.15); NEUTROPHILS PERCENT AUTO 89 % (41-73); Platelet Count 217 K/mm3 (150-400); RDW Coefficient Variation 16.7 % (11.7-14.2); RDW Standard Deviation 53.4 fL (35.1-46.3); Red Blood Cell Count 3.15 M/mm3 (3.80-5.20); White Blood Cell Count 20.35 K/mm3 (4.00-11.30)
[2019-05-18 04:04] LABS: Mean Corpuscular Volume 93 fL (80-100)
[2019-05-18 04:19] LABS: Anion Gap 6 mmol/L (6-16); Blood Urea Nitrogen 25 mg/dL (8-24); Bun/Creatinine Ratio 40.1 (12.0-20.0); CO2, Blood 27 mmol/L (21-32); Calcium, Blood 8.3 mg/dL (8.5-10.1); Chloride, Blood 111 mmol/L (98-108); Creatinine, Blood 0.62 mg/dL (0.40-1.00); Glomerular Filtration Rate >60 (60-); Glucose, Blood 117 mg/dL (70-99); Potassium, Blood 3.5 mmol/L (3.5-5.5); Sodium, Blood 144 mmol/L (136-145)
--- NOTE | 2019-05-18 06:12 | NUR ---
SHIFT SUMMARY PATIENT SLEPT THROUGH NIGHT. PROPOFOL NOW ON STANDBY, MINIMAL RESPONSIVENESS TO STIMULI. TUBE FEEDINGS WERE RESTARTED @ 05:00, SOME BOWEL TONES WERE NOTED. PATIENT HAD LARGE BOWEL MOVEMENT EARLIER IN SHIFT, FIRST IN ABOUT 7 DAYS. HELD STOOL SOFTENERS, LACTULOSE. BATH COMPLETED. WILL CHANGE PICC DRESSING. ASSESSMENT IS CHARTED. VSS. WILL CONTINUE TO MONITOR.
--- NOTE | 2019-05-18 07:15 | NUR ---
BEGINNING OF SHIFT Assumed care at 0700. Bedside report received from Artur RICKETTS. Pt responsive to pain. Propofol off. Per report, pt has been off propofol since 0500. Mechanically ventilated via 8.0 cm ETT, 22 cm GIANCARLO. Green/red sputum suctioned from ETT. Pivot 1.5 infusing at rate of 10 mL per hour with 30 mL water flush Q4H. Levophed at 5 mcg/min. SR per monitor.
--- NOTE | 2019-05-18 09:00 | NUR ---
DR LUGO IN ROOM TO SEE PT Discussed pt's mentation. Plan to continue monitoring and minimize sedation.
--- NOTE | 2019-05-18 11:45 | NUR ---
VENTILATOR SETTINGS CHANGED Pt had episode of tachypnea, RR 36-42. Tidal volumes poor 150-250 mL. Maintained SpO2 90% or greater. Episode resolved approx 2 minutes after green sputum suctioned from ETT. Call placed to Dr Sanchez to notify. RT Kim notifed. Provider in room to see pt shortly afterwards. RR 24, Tidal volumes 400-450. Nasal flaring and supracalvicular retractions noted. Pt placed back on AC 18/400/5/75%. Propofol remains off. Pt receiving precedex 0.4 mcg/kg/hr. Levophed currently at 2 mcg/min.
--- NOTE | 2019-05-18 12:45 | NUR ---
DR LUGO IN TO SEE PT Provider changed ventilator settings to AC 12/400/5/65%. RT notified. Assessed pt's labor of breathing and sedation with provider. Pt on 0.4 mcg/kg/hr precedex.
--- NOTE | 2019-05-18 17:30 | NUR ---
UPDATE Call placed to Dr Sanchez. Pt on PS, not tolerating well. Inconsistent tidal volumes. Tachynpnic. Pt placed back on AC. Settings AC 12/400/5/60%. Provider updated. Order given to titrate precedex up to 1.4 mcg/kg/hr as needed. Discussed edema. Orders given for furosemide.
--- NOTE | 2019-05-18 19:39 | NUR ---
SUMMARY At this time, vent settings AC 12/400/5/60%. Pt responsive to pain. Gag reflex has become stronger as shift has progressed. Propofol has remained off for entire shift. At this time, pt is receiving precedex at 0.7 mcg/kg/hr. Levophed at 5 mcg/min. Pt on 2 mcg/min levophed midshift, attempted to titrate off, pt became hypotensive and then required increased dose of precedex to tolerate ventilator. SR for entire shift. One large liquid bowel movement this shift. Bravo catheter in place. Pt's daughter at bedside for majority of shift. Bedside report given to Artur RICKETTS.
[2019-05-19 04:08] LABS: Anion Gap 3 mmol/L (6-16); Blood Urea Nitrogen 31 mg/dL (8-24); Bun/Creatinine Ratio 58.5 (12.0-20.0); CO2, Blood 31 mmol/L (21-32); Chloride, Blood 112 mmol/L (98-108); Creatinine, Blood 0.53 mg/dL (0.40-1.00); Glomerular Filtration Rate >60 (60-); Glucose, Blood 129 mg/dL (70-99); Phosphorus, Blood 2.8 mg/dL (2.5-4.9); Potassium, Blood 3.2 mmol/L (3.5-5.5); Sodium, Blood 146 mmol/L (136-145)
--- NOTE | 2019-05-19 06:20 | NUR ---
SHIFT SUMMARY PATIENT SLEPT WELL THROUGH THE NIGHT. INCREASED AND DECREASED LEVOPHED AFTER FENTANYL ADMINISTRATION, 25 MCG SEEMS TO SEDATE QUITE WELL FOR ABOUT 3-4 HOURS ON TOP OF CURRENT PRECEDEX INFUSION. FIO2 WAS INCREASED WELL, NOW DECREASED BACK DOWN TO 60%. ONE LARGE BM. TFs INCREASED TO 35 ML/HR, INCREASE TO GOAL RATE AT 08:00. NOTICYING MORE MOVEMENT AROUND THE FACE, EYES OPENED WIDE DURING TURN FOR BATH, WITHDRAWING ALL EXTREMETIES TO PAINFUL STIMULI. CHEST TUBES REMAIN CONSTANT, AIR LEAK IN RIGHT ANTERIOR (#1,) NO LEAK IN RIGHT LATERAL (#2.) INCREASED DRAINAGE FROM #2 CHEST TUBE, NOTED MORE AFTER LASIX ADMINISTRATION. BATH COMPLETED, WASHED HAIR. ASSESSMENT IS CHARTED. VSS. NO C/O PAIN. WILL CONTINUE TO MONITOR.
--- NOTE | 2019-05-19 07:30 | NUR ---
ASSUMED CARE OF PT AT 0700. BEDSIDE REPORT FROM DEMETRICE RICKETTS. PT INTUBATED AND SEDATED. VENT SETTINGS AC 16/380/5/60%. PRECEDEX INFUSING AT 0.7 MCG/KG/HR. PT WITHDRAWS TO PAINFUL STIMULI TO FEET ONLY. NO CORNEAL REFLEX NOTED. PT BREATHING OVER VENT SETTINGS. RATE 30-40'S. TWO CHEST TUBES TO RIGHT SIDE, PIGTAIL TO ANTERIOR WALL, WATER SEAL TO SUCTION, 32 F TO LATERAL WALL, WATER SEAL TO SUCTION. SCANT DRAINAGE IN TUBE TO ANTERIOR, SEROSANGIOUS DRAINAGE IN TUBE TO LATERAL. LUNGS COARSE THROUGHOUT, DIMINISHED IN BASES. LEVOPHED PLACED ON STANDBY AT START OF SHIFT. WILL MONITOR MAP. ABD ROUND, SOFT, NON TENDER. HYPOACTIVE BT. TUBE FEEDINGS INFUSING AT 35ML/HR c 30ML q4 FLUSHES, WILL INCREASE TO GOAL OF 45 ML/HR SHORTLY. NO RESIDUAL CHECKS PER DR PRUITT. PICC LINE TO LUE, INFUSING. DRESSING C/D/I. 2+ EDEMA TO LOWER EXTREMITIES, DEPENDENT EDEMA TO HANDS BILATERALLY. ELEVATED. MONTES IN PLACE, PATENT, DRAINING CLEAR YELLOW URINE TO GRAVITY. WILL CONTINUE TO MONITOR.
--- NOTE | 2019-05-19 09:30 | NUR ---
DR PRUITT IN TO ASSESS PT. PLAN TO PARALYZE c NIMBEX, RESTART PROPOFOL, D/C PRECEDEX. WILL MONITOR SEDATION AND PARAYLETIC c BIS MONITORING AND TRAIN OF FOUR. HOLD HEAD CT AT THIS TIME.
[2019-05-19 12:53] LABS: Base Excess Venous 5.9 mmol/L; PCO2 Venous 48.2 mmHg (38-42); PO2 Venous 64.2 mmHg (38-42); pH Blood Venous 7.41 (7.34-7.37)
--- NOTE | 2019-05-19 17:24 | NUR ---
SHIFT SUMMARY PT REMAINS INTUBATED, VENT SETTINGS CHANGED TO AC 24/380/5/60%. PROPOFOL RESTARTED FOR SEDATION, INFUSING AT 30 MCG/KG/MIN, FENTANYL AT 25 MCG/HR VIA SAPHIRE. BIS MONITORING IN PLACE, READING 30-40. NIMBEX INFUSING AT 3.5 MCG/KG/MIN. TRAIN OF FOUR DIFFICULT TO OBTAIN, MONITORING PT'S RESP OVER VENT SETTINGS. PT CONTINUES TO BREATH OVER VENT, RATE 26. PER DR. PRUITT, PLAN TO INCREASE SEDATION TO ACHIEVE VENT SYNCHRONY. LUNGS CONTINUE TO BE DECREASED IN BASES. CHEST TUBES REMAIN IN PLACE, AIR LEAK CONTINUES IN RIGHT ANTERIOR, 20 ML OF SERISANGEOUS DRAINAGE OUT. WATER SEAL TO RIGHT LATERAL TUBE CHANGED D/T WATER LEVELS. NO DRAINAGE OUT. NO LEAK. BT HYPOACTIVE. TUBE FEEDING DECREASED TO 35 ML/HR AFTER INITIATION OF PROPOFOL. NO BM THIS SHIFT. MONTES PATENT AND DRAINING TO GRAVITY. 750ML OF CLEAR YELLOW URINE OUT. PT REMAINED OFF PRESSORS THIS SHIFT. WILL CONTINUE TO MONITOR UNTIL REPORT TO ONCOMING NURSE.
[2019-05-19 18:23] LABS: Base Excess Venous 7.6 mmol/L; Bicarbonate Venous 30.6 mmol/L (24.0-30.0); PCO2 Venous 44.5 mmHg (38-42); PO2 Venous 58.6 mmHg (38-42); pH Blood Venous 7.46 (7.34-7.37)
--- NOTE | 2019-05-19 18:49 | NUR ---
CODE STATUS AFTER DR PRUITT HAD DISCUSSION c DAUGHTER THIS AFTERNOON, PT CODE STATUS CHANGED TO DNR. DAUGHTER WISHES PT TO HAVE FULL MEDICAL TREATMENT BUT NO CPR, DEFIBRILATION OR CODE MEDS. ORDER PLACED. DNR BAND TO RIGHT WRIST.
--- NOTE | 2019-05-19 18:56 | NUR ---
Spiritual care note: Mrs. Lebron was non-responsive on vent. Her dtr, Janeth, was at bedside. Janeth appears very realistic about her mom's dire illness. She admits her mom "wouldn't want to live like this long-term." Provided gentle chemical dependency counselor, but visit was interrupted when Janeth recieved t/c from her sister. Guest Relations Associate services will remain available.
--- NOTE | 2019-05-19 19:57 | NUR ---
ASSUMED CARE OF PT AT 1915. REPORT RECEIVED AT BEDSIDE. PT PRESENTS IN BED - VENTED. SETTINGS CHECKED AND VERIFIED WITH OFFGOING RN. PT ON NIMBEX DRIP. WILL TITRATE NIMBEX WITH TRAIN OF FOUR. BIS MONITORING IN PLACE. WILL TITRATE SEDATION TO MAINTAIN BIS 40-60. PT HAS TO CHEST TUBES IN PLACE. NO LEAKS DETECTED. DRIPS AND CHEST TUBES ALSO VERIFIED AND CHECKED WITH OFFGOING RN. WILL REVIEW CHART AND PLAN OF CARE FOR THIS PT.
--- NOTE | 2019-05-19 22:16 | NUR ---
FULL BEDBATH DONE. PT CONTINUES ON NIMBEX DRIP CURRENTLY AT 2.5/KG/MIN TRAIN OF FOUR 4/4 PT CURRENTLY SYNCHED TO VENT. PROPOFOL AT 35 MCG'S WITH BIS 35-42. NO DISTRESS. VENT WITH AC 24, Tv 380, PEEP 5, FIO2 65 PERCENT.
--- NOTE | 2019-05-20 02:21 | NUR ---
PT HAS MAINTAINED O2 SATURATIONS > 90 PERCENT WITH 65 % FIO2. NIMBEX HAS BEEN DECREASED FROM 2.5 MCG/KG/MIN TO 2.0. PT ABLE TO MAINTAIN TRAIN OF FOUR. PT REMAINS SYNCHED WITH VENT. PROPOFOL INCREASED TO 40 MCG/KG/MIN SECONDARY TO BIS MONITORING THAT MAINTAINS IN MID 30'S. HAVE REQUIRED LEVOPHED TO BE RESTARTED AT 3 MCG'S/MIN. WILL MONITOR BLOOD PRESSURES CLOSELY. TITRATE NEEDED.
[2019-05-20 05:15] LABS: Base Excess Venous 7.3 mmol/L; Bicarbonate Venous 30.5 mmol/L (24.0-30.0); PCO2 Venous 44.3 mmHg (38-42); PO2 Venous 123 mmHg (38-42); pH Blood Venous 7.46 (7.34-7.37)
[2019-05-20 05:17] LABS: BASOPHILS ABSOLUTE AUTO 0.02 K/mm3 (0.00-0.23); BASOPHILS PERCENT AUTO 0 % (0-2); EOSINOPHILS ABSOLUTE AUTO 0.08 K/mm3 (0.00-0.68); EOSINOPHILS PERCENT AUTO 1 % (0-6); Hematocrit 25.1 % (33.0-51.0); Hemoglobin 8.1 g/dL (11.5-16.0); IMMATURE GRAN ABSOLUTE AUTO 0.64 K/mm3 (0.00-0.10); IMMATURE GRAN PERCENT AUTO 5 % (0-1); LYMPHOCYTES PERCENT AUTO 7 % (21-46); MONOCYTES ABSOLUTE AUTO 0.52 K/mm3 (0.16-1.47); MONOCYTES PERCENT AUTO 4 % (4-13); Mean Corpuscular HGB 30.6 pg (26.0-34.0); Mean Corpuscular HGB Conc 32.3 g/dL (31.5-36.5); Mean Corpuscular Volume 95 fL (80-100); Mean Platelet Volume 10.3 fL (9.1-12.4); NEUTROPHILS ABSOLUTE AUTO 11.74 K/mm3 (1.96-9.15); NEUTROPHILS PERCENT AUTO 85 % (41-73); Platelet Count 267 K/mm3 (150-400); RDW Coefficient Variation 17.3 % (11.7-14.2); RDW Standard Deviation 54.3 fL (35.1-46.3); Red Blood Cell Count 2.65 M/mm3 (3.80-5.20)
[2019-05-20 05:43] LABS: Magnesium, Blood 2.2 mg/dL (1.6-2.4)
[2019-05-20 05:45] LABS: Alanine Aminotransfer (ALT/SGP 23 U/L (12-78); Albumin, Blood 1.1 g/dL (3.4-5.0); Albumin/Globulin Ratio 0.2 (0.8-1.8); Alk Phos 56 U/L (50-136); Anion Gap 2 mmol/L (6-16); Aspartate Aminotrans (AST/SGOT 47 U/L (12-37); Bilirubin, Total 0.5 mg/dL (0.1-1.0); Blood Urea Nitrogen 38 mg/dL (8-24); CO2, Blood 31 mmol/L (21-32); Chloride, Blood 116 mmol/L (98-108); Creatinine, Blood 0.49 mg/dL (0.40-1.00); Globulin, Blood 4.6 g/dL (2.2-4.0); Glomerular Filtration Rate >60 (60-); Glucose, Blood 131 mg/dL (70-99); Phosphorus, Blood 2.6 mg/dL (2.5-4.9); Potassium, Blood 3.6 mmol/L (3.5-5.5); Sodium, Blood 149 mmol/L (136-145); Total Protein, Blood 5.7 g/dL (6.4-8.2)
--- NOTE | 2019-05-20 06:48 | NUR ---
HAVE BEEN ABLE TO TITRATE DOWN NIMBEX TO 2 MCG/KG/MIN. TRAIN OF FOUR APPROPRIATE. BIS 35-50 WITH PROPOFOL AT 35 MCG. PT HAS HAD LARGE LOOSE BM THIS NIGHT. WILL CONTINUE TO MONITOR PT, AND WILL REPORT OFF TO ONCOMING RN. LEVOPHED AT 5 MCG'S.
--- NOTE | 2019-05-20 08:59 | NUR ---
[place] of Care: Care assumed at 0700hr, bedside report received from NOC shift RN. Patient intubated and sedated. Ventilator to AC-24/380/5/65%, spO2-97-98%. Patient on Nimbex gtt at 2mcg/kg/min, TOF 4/4 but patient ventilating without difficulty. Propofol gtt at 35mcg/kg/min, Fentanyl E [employer] DEVELOPER at 25mcg/hr, BIS monitor score in the mid 30's at shift change, propofol gtt then decreased to 30mcg/kg/min. Levophed gtt at 5mcg/min, BP stable. X2 chest tubes in place, rt upper/anterior chest and rt lateral chest. Both chest tube dressings C/D/I, set to wall suction. No air leak or crepitus noted. TF per OG at goal rate of 35ml/hr with 30ml H2O flush q4hr. Temp probe mcguire patent and intact, draining clear yellow urine. Will continue to monitor.
--- NOTE | 2019-05-20 13:45 | NUR ---
Initial palliative care consult: Faiza is a 59 year old with a history of chronic pain, COPD, polysubstance abuse, hep C, bipolar, migraines, seizure disorder, DM, brain aneurysm, anxiety disorder. She was admitted to [facility] on 05/12/19 with sepsis and severe pneumonia. Spoke with her dtr, Janeth, at bedside. Janeth reports she is the oldest of three children and that she has a brother and sister who live out of town. She reports that she keeps them up to date and makes decisions for her mother's care. She admits that last week has been difficult dealing with the ups and downs, however she is hopeful that her mom is showing some signs of improvement. She is aware that her mother is seriously ill at this time. Allowed Janeth to talk about her mother and the decision to make her a DNR. 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 She reports she knows the consequences of CPR and reports that she has done CPR on her patients in her care in the past. She is confident that she made the right choice for her mom in making her a DNR. She expressed that she took time off this week to be at the hospital during the day to talk with doctors. She is very appreciative of the staff and feels that her mom is well cared for. Encouraged self care. She reports that she goes home every night to spend time with her and two children (dtr, 14 and son, 3). She reports that she is sleeping at night. She feels that the staff are keeping her informed. Kept conversation mostly therapeutic at this time to establish a rapport. Will follow along for symptom management and advanced care planning as needed. son
--- NOTE | 2019-05-20 18:30 | NUR ---
Shift Summary: Patient remains intubated/sedated throughout shift. Vent remains to AC-24/380/5, FiO2 decreased to 50%, spO2- 89-96%. Mostly tolerating vent without difficulty. Received instructions from Dr. Verde to turn off Nimbex gtt at approx 1200hr. Patient continued to tolerate vent but had some short periods of increased respirations (30's) and breath staking. Repositioning and x1 prn fentanyl effective to help patient tolerate vent respiratory rate mostly at back-up rate of 24. Propofol gtt titrated from 30 to 40mcg/kg/min, patient now responds to painful stimuli, but not following any commands. Dr. Verde instructed to place rt later chest tube to water-seal at 1200hr, then rt anterior chest tube placed to water-seal at approx 1500hr following repeat chest x-ray. Additional chest x-ray ordered for 2000hr. Chest tube insertion sites remain c/d/i, no crepitus or air leak noted. PICC line remains patent and intact, infusing without difficulty. Levophed gtt titrated down from 5mcg to 3mcg/min, BP remains stable. Bravo cath remains patent and intact. Will continue to monitor until report to NOC shift RN.
--- NOTE | 2019-05-20 21:35 | NUR ---
PT INTUBATED AND SEDATED WITH PROPOFOL. FENTANYL AND ATIVAN GIVEN EARLIER DUE TO PT BEING ASYNCHRONOUS WITH VENT. PT NO LONGER HAS FURROWED BROW BUT ALSO DOES NOT RESPOND TO PAINFUL STIMULUS. REPEAT CXR WAS DONE AT 1999. PT SEEMS TO HAVE VERY MILD TRACHEAL DEVIATION. NO CREPITOUS AND IS TOLERATING THE VENT NOW. R ANTERIOR CHEST TUBE AND R LATERAL CHEST TUBE ARE TO WATER SEAL PER ORDERS. NO BUBBLING OR FLUCTUATING IN CHAMBERS. CHEST TUBE DRESSINGS ARE C/D/I. TITRATING LEVOPHED GTT PRN. PT TOLERATING TUBE FEED WELL. SEE ASSESSMENT.
--- NOTE | 2019-05-20 22:16 | NUR ---
CALLED DR. MALDONADO TO SEE IF SHE HAS SEEN THE CXR FROM [facility]. SHE CANNOT SEE IT FROM HOME AND [facility] DOES NOT READ CXR AT NIGHT. PT TOLERATING THE VENT AND SPO2 IS STABLE.
--- NOTE | 2019-05-21 00:20 | NUR ---
DR. MALDONADO WAS ABLE TO VIEW CXR AND SAYS IT LOOKS OK.
[2019-05-21 04:07] LABS: Base Excess Venous 7.6 mmol/L; Bicarbonate Venous 30.7 mmol/L (24.0-30.0); PCO2 Venous 42.3 mmHg (38-42); PO2 Venous 64.5 mmHg (38-42); pH Blood Venous 7.48 (7.34-7.37)
[2019-05-21 04:12] LABS: BASOPHILS ABSOLUTE AUTO 0.02 K/mm3 (0.00-0.23); BASOPHILS PERCENT AUTO 0 % (0-2); EOSINOPHILS ABSOLUTE AUTO 0.26 K/mm3 (0.00-0.68); EOSINOPHILS PERCENT AUTO 2 % (0-6); Hematocrit 27.6 % (33.0-51.0); Hemoglobin 8.9 g/dL (11.5-16.0); IMMATURE GRAN ABSOLUTE AUTO 0.23 K/mm3 (0.00-0.10); IMMATURE GRAN PERCENT AUTO 2 % (0-1); LYMPHOCYTES ABSOLUTE AUTO 1.42 K/mm3 (0.84-5.20); LYMPHOCYTES PERCENT AUTO 11 % (21-46); MONOCYTES ABSOLUTE AUTO 0.79 K/mm3 (0.16-1.47); MONOCYTES PERCENT AUTO 6 % (4-13); Mean Corpuscular HGB Conc 32.2 g/dL (31.5-36.5); Mean Corpuscular Volume 96 fL (80-100); Mean Platelet Volume 10.4 fL (9.1-12.4); NEUTROPHILS ABSOLUTE AUTO 10.23 K/mm3 (1.96-9.15); NEUTROPHILS PERCENT AUTO 79 % (41-73); Platelet Count 298 K/mm3 (150-400); RDW Coefficient Variation 17.8 % (11.7-14.2); RDW Standard Deviation 57.7 fL (35.1-46.3); Red Blood Cell Count 2.87 M/mm3 (3.80-5.20); White Blood Cell Count 12.95 K/mm3 (4.00-11.30)
[2019-05-21 04:24] LABS: Anion Gap 2 mmol/L (6-16); Blood Urea Nitrogen 36 mg/dL (8-24); Bun/Creatinine Ratio 87.4 (12.0-20.0); CO2, Blood 32 mmol/L (21-32); Chloride, Blood 116 mmol/L (98-108); Creatinine, Blood 0.41 mg/dL (0.40-1.00); Glomerular Filtration Rate >60 (60-); Glucose, Blood 99 mg/dL (70-99); Magnesium, Blood 2.2 mg/dL (1.6-2.4); Phosphorus, Blood 2.6 mg/dL (2.5-4.9); Potassium, Blood 3.2 mmol/L (3.5-5.5); Sodium, Blood 150 mmol/L (136-145)
--- NOTE | 2019-05-21 06:35 | NUR ---
SUMMARY PT INTUBATED AND SEDATED WITH PROPOFOL. LEVOPHED GTT REMAINS AT 3MCG/MIN. DID NOT WEAN PT THIS AM DUE TO CHEST TUBE GETTING PULLED OUT THIS AM AT 0330 WHILE DO[address] BATH. [address] DR[address] MALDONADO TO LET HER KNOW ABOUT CHEST TUBE. PT IS DOING WELL ON THE VENT. NO OXYGENATION ISSUES. HAVE NOT NOTED ANY CREPITOUS. CXR WAS DONE. ALSO LET HER KNOW ABOUT LOW POTASSIUM AND HIGH SODIUM. NEW ORDERS FOR KCL IV AND PER OG TUBE. ALSO INCREASED TUBE FEED FLUSH TO 200ML Q 4HR FOR HIGH SODIUM. WILL REPORT TO ONCOMING RN.
--- NOTE | 2019-05-21 07:30 | NUR ---
[place] of Care: Care assumed at 0700hr, bedside report received from NOC shift RN. Patient intubated/sedated. Propofol gtt at 40mcg/kg/min, fentanyl gtt at 25mcg/hr. Minimal response to painful stimuli, slight facial grimace or coughing vent/breath stacking. Patient otherwise unresponsive, not following any commands. Vent to AC- 24/380/5/45%, spO2-94-96%. Chest to rt anterior chest wall, dressing C/D/I, no crepitus or air leak noted. PICC line to LUZ patent and intact, infusing without difficulty. Levophed gtt at 3mcg/min, BP stable, will titrate as indicated. Temp-probe mcguire patent and intact, draining clear yellow urine. Bilateral soft wrist restraints in place. Will continue to monitor for pain, safety, comfort.
--- NOTE | 2019-05-21 12:03 | NUR ---
Supportive Therapeutic Visit Pt resting in bed and is intubated. Pt appears comfortable with no S/S of distress at this time. Pt's daughter Janeth at bedside. Listened as daughter expresses concerns regarding not knowing what Pt's neuro status will be if she is able to be extubated. Janeth reports multiple plans to cover multiple outcomes. Janeth reports no concerns at this time and expresses appreciation of visit. Spoke with Bedside LILIAM Bueno and discussed case. Palliative Care will remain available.
--- NOTE | 2019-05-21 12:30 | NUR ---
Update: Dr. Verde to patients room at approx 1130hr. Dr. Verde then removed chest to to rt anterior chest wall and applied clear occlusive dressing. Dr. Verde also switched ventilator from AC to PS of 8/5/40%, and instructed this nurse to turn off sedation, Fentanyl gtt at 25mcg/hr also D/C'd. After sedation stopped, patient slowly began to wake, attempting to open eyes, occasional facial grimace, but not following any commands. Sedation off for approx 45min, then patient's respiratory rate increased to high 30's-40's, and tidal volumes decreased to low 200's or high 100's. Dr. Verde called back to room, patient placed back on AC- 24/380/5/40%, and propofol gtt resumed at half the previous dose, now at 20mcg/kg/min. X1 50mcg prn fentanly given. Patient now appears calm and comfortable, ventilating without difficulty, VSS. Will continue to monitor.
--- NOTE | 2019-05-21 18:40 | NUR ---
Shift Summary: At approx 1400hr, Dr. Verde decreased patient's back-up vent respiratory rate from 24 to 18/380/5/40%. Patient mostly calm for remainder of shift but has occasionally coughed vent and stacked breaths. Prn fentanyl x2 effective to calm patient and ventilate without difficulty. Propofol gtt at 15mcg/kg/min. Patient attempts to open eyes to verbal stimuli, facial grimace with noxious stimuli, but not following any other commands. Levophed titrated down, then placed on stand-by at approx 1530hr, BP remains stable. D/C'd chest tube sites remain C/D/I, no s/s of crepitus. Rectal tube placed this afternoon for continued loose/liquid stool, remains patent and intact. Bravo continues to drain to gravity, clear yellow urine. Will monitor until report to NOC shift RN.
--- NOTE | 2019-05-21 21:30 | NUR ---
ASSUMED CARE OF PT. REPORT FROM GUIDO VILLEGAS RN. PT INTUBATED AND SEDATED WITH PROPOFOL. PT RESPONDS TO PAIN. NO SIGN OF DISTRESS.
[2019-05-22 04:52] LABS: BASOPHILS ABSOLUTE AUTO 0.03 K/mm3 (0.00-0.23); BASOPHILS PERCENT AUTO 0 % (0-2); EOSINOPHILS ABSOLUTE AUTO 0.12 K/mm3 (0.00-0.68); EOSINOPHILS PERCENT AUTO 1 % (0-6); Hematocrit 33.2 % (33.0-51.0); Hemoglobin 10.8 g/dL (11.5-16.0); IMMATURE GRAN ABSOLUTE AUTO 0.11 K/mm3 (0.00-0.10); IMMATURE GRAN PERCENT AUTO 1 % (0-1); LYMPHOCYTES PERCENT AUTO 9 % (21-46); MONOCYTES ABSOLUTE AUTO 0.67 K/mm3 (0.16-1.47); MONOCYTES PERCENT AUTO 6 % (4-13); Mean Corpuscular HGB 31.2 pg (26.0-34.0); Mean Corpuscular HGB Conc 32.5 g/dL (31.5-36.5); Mean Corpuscular Volume 96 fL (80-100); NEUTROPHILS ABSOLUTE AUTO 8.92 K/mm3 (1.96-9.15); NEUTROPHILS PERCENT AUTO 82 % (41-73); Platelet Count 244 K/mm3 (150-400); RDW Standard Deviation 59.7 fL (35.1-46.3); Red Blood Cell Count 3.46 M/mm3 (3.80-5.20); White Blood Cell Count 10.85 K/mm3 (4.00-11.30)
[2019-05-22 05:08] LABS: Anion Gap 2 mmol/L (6-16); Blood Urea Nitrogen 25 mg/dL (8-24); Bun/Creatinine Ratio 57.2 (12.0-20.0); CO2, Blood 32 mmol/L (21-32); Chloride, Blood 112 mmol/L (98-108); Creatinine, Blood 0.44 mg/dL (0.40-1.00); Glomerular Filtration Rate >60 (60-); Glucose, Blood 115 mg/dL (70-99); Potassium, Blood 3.4 mmol/L (3.5-5.5); Sodium, Blood 146 mmol/L (136-145)
--- NOTE | 2019-05-22 05:51 | NUR ---
SUMMARY PT INTUBATED AND SEDATED WITH PROPOFOL. SEDATION VACATION AND SBT THIS AM. PT DOES NOT FULLY WAKE UP WHEN OFF SEDATION. WILL LIFT HER EYELIDS A LITTLE TO VOICE. GRIMACES TO STERNAL RUB. UNABLE TO FOLLOW ANY OTHER COMMANDS. FOOT DROP NOTED, WORSE ON R SIDE. NO CHANGES THIS SHIFT.
--- NOTE | 2019-05-22 07:15 | NUR ---
[place] of Care: Care assumed at 0700hr, bedside report received from NOC shift RN. Patient remains intubated/sedated. Vent to AC-18/380/5/40%, spO2-96%, VSS, tolerating vent without difficulty. Propofol gtt at 15mcg/kg/min, patient occasionally attempts to open eyes, facial grimace to noxious stimuli, otherwise not following any commands. PICC line to LUZ patent and intact, infusing without difficulty. Bravo cath patent and intact, draining clear yellow urine. Rectal tube coma out on NOC shift and not replaced. Patient clean at this time, no stool noted. Will continue to monitor.
--- NOTE | 2019-05-22 19:08 | NUR ---
Shift Summary: Patient remained intubated/sedated throughout shift. Dr. Verde placed patient on vent mode PS 8/5/40% at approx 1000hr, patient tolerated this mode longer than previous day shift, approx 2-3hr. Dr. Verde did not wish to turn off sedation during this trial, propofol gtt at 15mcg/kg/min. Patients's respiratory rate increased to 40's, with tidal volumes 150-200. Lilliam RT called to room, patient switched back to AC mode (previous settings), and Dr. Verde informed of change. No change in neuro status, continues to occasionally open eyes and facial grimace, but not following any commands. PICC line dressing changes this shift, remains C/D/I. Bravo cath remains patent and intact, draining clear yellow urine. Rectal tube place mid-shift following XL liquid BM, but rectal tube has showed no output since placement. Bedside report given to NOC shift RN.
--- NOTE | 2019-05-22 21:21 | NUR ---
PT INTUBATED AND SEDATED ON PROPOFOL AT 20MCG/KG/MIN. PT WILL OPEN EYE'S SLOWLY WHEN SHE HEARS HER NAME. GRIMACES TO NOXIOUS NAILBED STIMULUS. NO ATTEMPT TO LIFT ARMS OR SQUEEZE HANDS WHEN ASKED. FOOT DROP BILAT R IS WORSE THAN L. TOOK PT OUT OF WRIST RESTRAINTS THERE HAS BEEN NO ATTEMPT AT REACHING FOR TUBES. HANDS ARE EDEMATOUS. SEE ASSESSMENT.
[2019-05-23 05:33] LABS: BASOPHILS ABSOLUTE AUTO 0.03 K/mm3 (0.00-0.23); BASOPHILS PERCENT AUTO 0 % (0-2); EOSINOPHILS ABSOLUTE AUTO 0.15 K/mm3 (0.00-0.68); EOSINOPHILS PERCENT AUTO 1 % (0-6); Hemoglobin 8.3 g/dL (11.5-16.0); IMMATURE GRAN ABSOLUTE AUTO 0.15 K/mm3 (0.00-0.10); IMMATURE GRAN PERCENT AUTO 1 % (0-1); LYMPHOCYTES ABSOLUTE AUTO 1.29 K/mm3 (0.84-5.20); LYMPHOCYTES PERCENT AUTO 11 % (21-46); MONOCYTES ABSOLUTE AUTO 0.77 K/mm3 (0.16-1.47); MONOCYTES PERCENT AUTO 6 % (4-13); Mean Corpuscular HGB 30.7 pg (26.0-34.0); Mean Corpuscular HGB Conc 31.9 g/dL (31.5-36.5); Mean Corpuscular Volume 96 fL (80-100); Mean Platelet Volume 10.1 fL (9.1-12.4); NEUTROPHILS ABSOLUTE AUTO 9.63 K/mm3 (1.96-9.15); NEUTROPHILS PERCENT AUTO 80 % (41-73); Platelet Count 272 K/mm3 (150-400); RDW Coefficient Variation 17.8 % (11.7-14.2); RDW Standard Deviation 59.7 fL (35.1-46.3); White Blood Cell Count 12.02 K/mm3 (4.00-11.30)
[2019-05-23 05:48] LABS: Anion Gap 2 mmol/L (6-16); Blood Urea Nitrogen 20 mg/dL (8-24); Bun/Creatinine Ratio 42.3 (12.0-20.0); CO2, Blood 33 mmol/L (21-32); Chloride, Blood 108 mmol/L (98-108); Creatinine, Blood 0.47 mg/dL (0.40-1.00); Glomerular Filtration Rate >60 (60-); Glucose, Blood 101 mg/dL (70-99); Phosphorus, Blood 3.5 mg/dL (2.5-4.9); Potassium, Blood 3.8 mmol/L (3.5-5.5); Sodium, Blood 143 mmol/L (136-145)
--- NOTE | 2019-05-23 06:09 | NUR ---
SUMMARY PT INTUBATED. CURRENTLY OFF SEDATION FOR SEDATION VACATION AND SBT. PT DID WELL RESPIRATORY BARAKAT FOR SBT BUT DOES NOT FOLLOW COMMANDS AND NO GAG REFLEX. LEAVING PT OFF SEDATION FOR NOW UNLESS SHE ISN'T TOLERATING THE VENT. PT WILL GRIMACE TO PAIN BUT NO ATTEMPT TO REACH WITH HANDS OR ANY WITHDRAWL FROM PAINFUL STIMULUS. HAS BEEN OUT OF RESTRAINTS SINCE 1999. FLEXISEAL HAS SMALL AMT OF LIQUID BROWN STOOL IN TUBING. NO ACUTE CHANGES THIS SHIFT.
--- NOTE | 2019-05-23 08:00 | NUR ---
ASSUMED CARE: REPORT RECEIVED FROM JAKE Alcaraz RN. ASSUMED CARE OF THIS PT AT APPROX 0700. ON ASSESSMENT, THE PT IS INTUBATED. SEDATION PLACED ON STANDBY AT APPROX 0430 PER REPORT. PT W/ NO SPONTANEOUS MOVEMENT OF EXTREMITIES & IS NOT TRACKING W/ EYES OR FOLLOWING DIRECTION. RESTRAINTS REMOVED BY PRIOR SHIFT. LS ARE COARSE T/O W/ CRACKLES IN BASES BILATERALLY. VENT SETTINGS: AC 18, TV 380, PEEP 5 & FIO2 40%. MONITOR SHOWS ST W/ HR 100s, BP STABLE. OGT W/ TUBE FEEDS INFUSING AT GOAL RATE OF 45 MLK/HR, 200 ML H2O FLUSH Q4H, LOW RESIDUALS. FLEXISEAL IN PLACE DRAINING BROWN LIQUID STLS. MONTES PATENT/ DRAINING YELLOW URINE. SKIN OVERALL INTACT, REDNESS TO LEDY AREA W/ NYSTATIN APPLIED PER EMAR. WILL CONTINUE TO MONITOR & UPDATE NEEDED.
--- NOTE | 2019-05-23 11:45 | NUR ---
TUBE FEEDINGS: TUBE FEEDING TUBING HAS BEEN CHANGED & NEW BOTTLE OF FORMULA HAS BEEN HUNG, LABELED W/ DATE & TIME.
--- NOTE | 2019-05-23 13:30 | NUR ---
DR ULLOA: PROVIDER AT BEDSIDE TO EVAL PT. STS HE WOULD LIKE THE PROPOFOL TO REMAIN ON STANDBY IN ORDER TO SEE IF PT WILL AWAKEN MORE & ASSESS MENTATION. FIO2 DECREASED TO 30% AT 1340 PER PROVIDER. NO OTHER CHANGES AT THIS TIME. WILL CONTINUE TO MONITOR & UPDATE NEEDED.
--- NOTE | 2019-05-23 18:28 | NUR ---
SHIFT SUMMARY: NO ACUTE CHANGES SINCE PRIOR UPDATES. PT BRIEFLY TRACKS W/ EYES & LOOKS TOWARD VERBAL STIMULUS. SHE RESPONDS WELL TO VERBAL REDIRECTION TO SLOW RR & MINIMAL MOVEMENT OF INDEX FINGER ON R HAND WAS NOTED THIS EVENING WELL. LS REMAIN COARSE, PT NOW ON SPONTANEOUS MODE W/ PS 10 & 35% FIO2. SHE IS TOLERATING WELL OTHER THAN PERIODS OF TACHYPNEIA W/ RR > 30. MONITOR SHOWS SR-ST W/ HR 90-100s, SBP 90s. OGT W/ TUBE FEEDS INFUSING AT GOAL RATE, RESIDUALS HAVE INCREASED T/O THE SHIFT. MONTES PATENT/ DRAINING DARK YELLOW, CLOUDY URINE. REDNESS TO LEDY AREA CONTINUES. NYSTATIN ORDERED. WILL CONTINUE TO MONITOR & REPORT OFF TO ONCOMING RN.
--- NOTE | 2019-05-23 19:00 | NUR ---
ASSUMED CARE NOTE; ASSUMED CARE OF PT @ 1900, RECEVIED REPORT FROM MICHAEL RICKETTS. PT ON VENTILATOR WITH SPONTANEOUS MODE PS OF 10, FIO2 35%, RR @ 25-30, SPO2 ABOVE 90%. PT IN SINUS TACH WITH HR IN THE 110'S. PT RESPONDS TO PAINFUL STIMULI. PT OPEN EYES SPONTANEOUSLY, HOWEVER, DOES NOT TRACK. PT IS UNABLE TO FOLLOW COMMANDS OR MOVE ANY EXTREMITIY. MONTES PATNET AND DRAINING YELLOW CLEAR URINE. VITAL SIGNS STABLE. WILL CONTINUE TO MONITOR PT T/O SHIFT.
--- NOTE | 2019-05-24 06:36 | NUR ---
SHIFT SUMMARY: SEE PREVIOUS NOTES. NO SIGNIFICAT CHANGES. VENT SETTINGS REMAINED SAME. PT HAS BEEN HAVING MODERATE AMOUNTS OF THIN FROTHY SPUTUM. RR HAVE BEEN BETWEEN 15-25, OCCASIONALY IN THE 30'S. PRN FENTYNAL GIVEN FOR PAIN/VENT COMPLIANCE THIS SHIFT. PT HAS BEEN IN NSR-SIT 80-110'S. NO BM THIS SHFT. MONTES DRAINING YELLOW CLOUDY URINE. PRESSURES SOFT, MAP ABOVE 65. WILL CONTINUE TO MONITOR PT UNTIL REPORT IS GIVEN TO ONCOMING SHIFT.
--- NOTE | 2019-05-24 07:48 | NUR ---
ASSUMED CARE: REPORT RECEIVED FROM SAVANNAH Rosario RN. ASSUMED CARE OF THIS PT AT APPROX 0700. ON ASSUMING CARE, THE PT IS INTUBATED & RESTING QUIETLY. SEDATION VIA PROPOFOL HAS BEEN OFF SINCE 429 ON 05/23/19. PT MEDICATED PER EMAR W/ FENTANYL PRN BY DOPE FIRER RN. HER EYES ARE OPEN SPONTANEOUSLY & SHE GRIMACES/ ATTEMPTS TO CLOSE EYES WHEN CHECKING PUPILLARY RESPONSE. EYES BRIEFLY LOOK TOWARD DIRECTION OF HER NAME BEING STATED BUT THERE IS NO CONSISTENT TRACKING NOTED. NO MOVEMENT OF ANY EXTREMITIES IS SEEN & PT IS NOT IN RESTRAINTS R/T THIS. LS ARE COARSE T/O W/ CRACKLES IN BILAT BASES. VENT SETTINGS: SPONT W/ PS 10 & 35% FIO2. PT TOLERATING WELL W/ TV > 380 & RR 16-22. MONITOR SHOWS SR-ST W/ HR 90-100s. BP STABLE, SLIGHT HYPOTENSION W/ SBP 90s AT TIMES. OGT W/ PIVOT 1.5 FORMULA INFUSING AT GOAL RATE OF 45 ML/HR & 200 ML H2O FLUSH Q4H. MONTES PATENT/ DRAINING CLOUDY YELLOW URINE. REDNESS TO LEDY AREA SKIN FOLDS W/ NYSTATIN ORDERED. WILL CONTINUE TO MONITOR & UDPATE NEEDED.
--- NOTE | 2019-05-24 09:05 | NUR ---
PT. IS NOT ON SEDATION. PT. ON SPONT. MODE.
--- NOTE | 2019-05-24 11:18 | NUR ---
DR ULLOA: PROVIDER AT BEDSIDE TO EVAL PT & HAS DISCUSSED POC W/ PT's DAUGHTER, NAHEED. HE WOULD LIKE THE PT TO CONTINUE OFF OF SEDATION SO THAT HER MENTATION CAN CONTINUE TO CLEAR. PHYSICAL THERAPY EVAL & TX ORDERED TO HELP PT GAIN BACK SOME MOBILITY.
--- NOTE | 2019-05-24 12:34 | NUR ---
TUBE FEEDING: CHANGE TO TUBE FEED RATE HAS BEEN MADE PER DIETARY, RATE DECREASED FROM 45 ML/HR TO 40 ML/HR.
--- NOTE | 2019-05-24 18:06 | NUR ---
SHIFT SUMMARY: NO ACUTE CHANGES SINCE PRIOR UPDATES. PT REMAINS INTUBATED W/ NO SEDATION AT THIS TIME. HER EYES ARE OPEN SPONTANEOUSLY W/ MINIMAL TRACKING NOTED. SHE IS UNABLE TO FOLLOW COMMANDS OR MOVE ANY OF HER EXTREMITIES. SHE REMAINS UNRESTRAINED. LS ARE COARSE T/O W/ CRACKLES IN BILAT BASES. VENT SETTINGS UNCHANGED: SPONT W/ PS 10 & 35% FIO2. MONITOR SHOWS SR-ST W/ HR 90-100s. SLIGHT HYPOTENSION W/ SBP 80-90s AT TIMES. TUBE FEEDS INFUSING AT GOAL RATE, RESIDUALS LABILE. RECTAL TUBE REPLACED THIS AM W/ LIQUID BROWN STL NOTED IN TUBING. MONTES PATENT/ DRAINING. SKIN CONIDITION UNCHANGED, Q2H TURNING. WILL CONTINUE TO MONITOR & REPORT OFF TO ONCOMING RN.
--- NOTE | 2019-05-25 01:26 | NUR ---
START OF SHIFT NOTE: BEDSIDE REPORT FROM MICHAEL RICKETTS. PT INTUBATED NOT ON SEDATION, VENT ON SPONTANEOUS AND HAS BEEN FOR APPROX TWO DAYS. PT VSS NOT ON PRESSERS. PT NOT MAKING PURPOSEFUL MOVEMENTS BUT DOES OPEN HER EYES TO VOICE. PT DOES NOT TRACK. PT PUPILS EQUAL 3mm SLUGGISH TO LIGHT BUT PT BLINKS TO LIGHT. PT LS CLEAR DIM ON RIGHT. RIGHT SIDE RIB WITH DRESSING FROM OLD CT REMOVAL-DRESSING DCI. ABD SOFT, BT HYPOACTIVE. OG TO TF PIVET AT GOAL. RESIDUALS HAVE BEEN OVER 100 BUT LESS THAN 250. MONTES CATHETER DRAINING CLEAR YELLOW/GREEN URING. RECTAL TUBE DRAINING WATERY/LIQUID BROWN/GREEN STOOL. BILATERAL FEET WITH DROP-FOOT PROTECTOR BOOTS DONNED. PT TOLERATES TURNING WELL. PT CLOSES MOUTH WHEN ORAL CARE PERFORMED BUT JUST TEMPORARILY. PT IS NOT IN RESTRAINTS SINCE NOT MOVING EXTREMITIES. PT WITHOUT CHANGES T/O SHIFT THUS FAR FROM INITIAL ASSESSMENT.
--- NOTE | 2019-05-25 03:09 | NUR ---
PT'S DAUGHTER CALLED AND WAS UPDATED.
[2019-05-25 03:56] LABS: BASOPHILS ABSOLUTE AUTO 0.02 K/mm3 (0.00-0.23); BASOPHILS PERCENT AUTO 0 % (0-2); EOSINOPHILS ABSOLUTE AUTO 0.24 K/mm3 (0.00-0.68); EOSINOPHILS PERCENT AUTO 3 % (0-6); Hematocrit 27.3 % (33.0-51.0); Hemoglobin 8.8 g/dL (11.5-16.0); IMMATURE GRAN ABSOLUTE AUTO 0.13 K/mm3 (0.00-0.10); IMMATURE GRAN PERCENT AUTO 2 % (0-1); LYMPHOCYTES ABSOLUTE AUTO 0.93 K/mm3 (0.84-5.20); LYMPHOCYTES PERCENT AUTO 11 % (21-46); MONOCYTES ABSOLUTE AUTO 0.55 K/mm3 (0.16-1.47); MONOCYTES PERCENT AUTO 7 % (4-13); Mean Corpuscular HGB 31.4 pg (26.0-34.0); Mean Corpuscular HGB Conc 32.2 g/dL (31.5-36.5); Mean Corpuscular Volume 98 fL (80-100); NEUTROPHILS ABSOLUTE AUTO 6.31 K/mm3 (1.96-9.15); NEUTROPHILS PERCENT AUTO 77 % (41-73); Platelet Count 245 K/mm3 (150-400); RDW Coefficient Variation 17.4 % (11.7-14.2); RDW Standard Deviation 61.1 fL (35.1-46.3); White Blood Cell Count 8.18 K/mm3 (4.00-11.30)
[2019-05-25 04:16] LABS: Alanine Aminotransfer (ALT/SGP 38 U/L (12-78); Albumin, Blood 1.3 g/dL (3.4-5.0); Albumin/Globulin Ratio 0.3 (0.8-1.8); Alk Phos 61 U/L (50-136); Anion Gap 3 mmol/L (6-16); Aspartate Aminotrans (AST/SGOT 59 U/L (12-37); Bilirubin, Total 0.3 mg/dL (0.1-1.0); Blood Urea Nitrogen 19 mg/dL (8-24); CO2, Blood 32 mmol/L (21-32); Calcium, Blood 7.9 mg/dL (8.5-10.1); Chloride, Blood 105 mmol/L (98-108); Creatinine, Blood 0.48 mg/dL (0.40-1.00); Globulin, Blood 4.6 g/dL (2.2-4.0); Glomerular Filtration Rate >60 (60-); Glucose, Blood 106 mg/dL (70-99); Magnesium, Blood 1.9 mg/dL (1.6-2.4); Potassium, Blood 3.3 mmol/L (3.5-5.5); Sodium, Blood 140 mmol/L (136-145); Total Protein, Blood 5.9 g/dL (6.4-8.2)
[2019-05-25 04:52] LABS: PCO2 Arterial 39.1 mmHg (35-45); PO2 Arterial 64.4 mmHg (80-100); pH Blood Arterial 7.52 (7.35-7.45)
--- NOTE | 2019-05-25 06:45 | NUR ---
END OF SHIFT NOTE: PT REMAINED WITH NO IMPROVEMENTS NOR DECLINE T/O NOC. VSS. PT REMAINS OFF SEDATION AND PRESSORS. REMAINS INTUBATED ON SPONTANEOUS. PT'S DAUGHTER HAD CALLED AND WAS UPDATED. PT SKIN EXCORIATED TO LEDY AREA AND REQUIRES CONTINUED LEDY CARE FINISHING WITH NYSTATIN AND BARRIER CREAM. PT COUGHS AND GAGS WHENEVER TURNED AND WILL OPEN EYES TO VOICE AND NOISE, HOWEVER STILL NOT TRACKING. PT CONTINUES WITH NO PURPOSEFUL MOVEMENTS BUT DOES OCCASIONALLY HAVE GROSS MOTOR TO THE LOWER EXTREMITIES. TUBE FEED CONTINUES WITH RESIDUALS OVER 100cc BUT LESS THAN 250. WILL REPORT OFF TO ONCOMING RN.
--- NOTE | 2019-05-25 07:46 | NUR ---
[place] of Care: Care assumed at 0700hr, bedside report received from NOC shift RN. Patient intubated, vent to PS of 10/5/35%, spO2-96-98%, tolerating vent mode without difficulty. No sedation (off since 05/22 per report). Patient opens eyes spontaneously and to verbal stimuli, but not tracking, occasionally moves head [id number]. Facial grimace to noxious stimuli, positive gag and cough reflex but not response to plantar reflex. No movement of upper extremities, minimal spontaneous movement of toes on both feet. PICC line to LUZ patent and intact. Bravo patent and intact, draining clear yellow urine. Rectal tube in place, draining liquid brown stool. No restraints in place at shift change, as patient is not moving upper extremities. This nurse ordered KCl 40meq IV x1 this morning per K+ of 3.3, per electrolyte replacement protocol. Will continue to monitor.
--- NOTE | 2019-05-25 18:20 | NUR ---
Shift Summary: No changes to vent settings throughout shift, patient remains on PS 10/5/30%, spO2-96-98%. Tolerated vent without difficulty throughout shift. Minimal changes to Neuro status throughout shift. At times, patient able to wiggle toes bilaterally to command and nod head "no", but patient mostly not following any commands. Continues to open eyes spontaneously, looks at staff to verbal cues, but not tracking. VSS throughout shift. PICC line remains patent and intact, infusing without difficulty. Bravo cath patent and intact, draining dark yellow urine. Appears calm and comfortable. Will continue to monitor until report to NOC shift RN.
[2019-05-26 04:47] LABS: BASOPHILS ABSOLUTE AUTO 0.03 K/mm3 (0.00-0.23); BASOPHILS PERCENT AUTO 0 % (0-2); EOSINOPHILS PERCENT AUTO 4 % (0-6); Hematocrit 29.9 % (33.0-51.0); Hemoglobin 9.5 g/dL (11.5-16.0); IMMATURE GRAN ABSOLUTE AUTO 0.16 K/mm3 (0.00-0.10); IMMATURE GRAN PERCENT AUTO 2 % (0-1); LYMPHOCYTES ABSOLUTE AUTO 1.18 K/mm3 (0.84-5.20); LYMPHOCYTES PERCENT AUTO 11 % (21-46); MONOCYTES ABSOLUTE AUTO 0.77 K/mm3 (0.16-1.47); MONOCYTES PERCENT AUTO 7 % (4-13); Mean Corpuscular HGB 31.3 pg (26.0-34.0); Mean Corpuscular HGB Conc 31.8 g/dL (31.5-36.5); Mean Corpuscular Volume 98 fL (80-100); Mean Platelet Volume 10.4 fL (9.1-12.4); NEUTROPHILS ABSOLUTE AUTO 8.25 K/mm3 (1.96-9.15); NEUTROPHILS PERCENT AUTO 77 % (41-73); Platelet Count 254 K/mm3 (150-400); RDW Coefficient Variation 17.4 % (11.7-14.2); RDW Standard Deviation 61.4 fL (35.1-46.3); Red Blood Cell Count 3.04 M/mm3 (3.80-5.20); White Blood Cell Count 10.79 K/mm3 (4.00-11.30)
[2019-05-26 05:58] LABS: Magnesium, Blood 1.8 mg/dL (1.6-2.4)
[2019-05-26 06:01] LABS: Alanine Aminotransfer (ALT/SGP 48 U/L (12-78); Albumin, Blood 1.4 g/dL (3.4-5.0); Albumin/Globulin Ratio 0.3 (0.8-1.8); Alk Phos 65 U/L (50-136); Anion Gap 4 mmol/L (6-16); Aspartate Aminotrans (AST/SGOT 61 U/L (12-37); Bilirubin, Total 0.5 mg/dL (0.1-1.0); Blood Urea Nitrogen 21 mg/dL (8-24); Bun/Creatinine Ratio 49.8 (12.0-20.0); CO2, Blood 31 mmol/L (21-32); Calcium, Blood 8.1 mg/dL (8.5-10.1); Chloride, Blood 104 mmol/L (98-108); Creatinine, Blood 0.42 mg/dL (0.40-1.00); Globulin, Blood 4.6 g/dL (2.2-4.0); Glomerular Filtration Rate >60 (60-); Glucose, Blood 109 mg/dL (70-99); Phosphorus, Blood 3.7 mg/dL (2.5-4.9); Potassium, Blood 3.6 mmol/L (3.5-5.5); Sodium, Blood 139 mmol/L (136-145)
--- NOTE | 2019-05-26 06:39 | NUR ---
SUMMARY PT INTUBATED, NO SEDATION. THIS AM PT IS OPENING EYE'S TO NAME. ABLE TO LIGHTLY SQUEEZE R HAND ON COMMAND. AND ROLLS EYE'S WHEN ASKED TO OPEN MOUTH FOR ORAL CARE. EVEN SEEMS TO SMILES AT TIMES. STILL HAS FOOT DROP. FEET ARE IN BOOTS TO KEEP THEM FROM FLOPPING. REMAINS ON PS VENT SETTINGS, NO ISSUES WITH THAT. TOLERATING TUBE FEED. RECTAL TUBE IN PLACE WITH LIQUID STOOL. NO SIGN OF DISTRESS THIS AM.
--- NOTE | 2019-05-26 07:30 | NUR ---
[place] [facility] of Care: Care assumed at 0700hr. Patient remains intubated and off of sedation. Vent to PS 10/5/30%, spO2-95-96%, tolerating vent mode without difficulty. Patient has improved neurologically compared to yesterday. Patient now able to track staff at times, but continues to occasionally gaze upwards. Able to squeeze rt hand and wiggle toes bilaterally. Also gross movement to all extremities. Able to nod head yes/no appropriately. X1 prn fentanyl given for pain with good effect noted. PICC line to LUZ patent and intact, infusing without difficulty. Bravo cath and rectal tube both patent and intact, draining to gravity. Rash to ABD, diffuse throughout, no change r/t yesterday, not improving with benadryl. Spoke with Dr. Melendrez r/t deepa, who then phoned Shaun Evangelista with [facility]. Awaiting Shaun's arrival to assess patient/rash. VSS, no s/s of anaphylactic reaction. Will continue to monitor.
--- NOTE | 2019-05-26 11:24 | NUR ---
Dr. Evangelista to Room: Dr. Evangelisat to room to assess patient/rash to ABD and thighs. Dr. Mack informed this nurse and daughter that rash is likely a macular papular rash r/t Rocephin (ABX. Rash does not require any treatment at this time and may take up to a week to heal/resolve. Will add Rocehpin to patient's allergy list.
--- NOTE | 2019-05-26 18:03 | NUR ---
Shift Summary: No changes to vent settings throughout shift. Vent remains at PS of 10/5/30%, spO2-96-98%, tolerating vent mode without difficulty. VSS throughout shift. Patient continues to show improvement in neuro status. Able to follow simple commands to squeeze hands (lt hand only so far), wiggle toes (bilaterally), and nod head yes/no appropriately. Gross movement of all extremities noted. X1 prn fentanyl given this morning for c/o pain with good effect. Patient calm/comfortable for remainder of shift, smiling at times. PICC line remains patent and intact, infusing without difficulty. Bravo cath and rectal tube remain patent and intact, draining to gravity. Patient sleeping at this time. Will continue to monitor until report to NOC shift RN.
--- NOTE | 2019-05-26 18:38 | NUR ---
Routine spiritual care note: Mrs. Lebron was wake and on vent. She was slow to respond and denied pain. She allowed me to pray for her at bedside. Provided encouragement and affirmation of care and attention. Social Services services will remain available.
--- NOTE | 2019-05-26 21:18 | NUR ---
PT INTUBATED, NO SEDATION. PT IS WIDE AWAKE WILL ANSWER SOME QUESTIONS BY NODDING YES OR NO. C/O PAIN EARLIER AND GAVE FENTANYL. LOW GRADE TEMP, GAVE TYLENOL. PT FIGHTS ORAL CARE, IT IS EXTREMELY DIFFICULT TO GET SPONGE IN THERE, SHE CLAMPS HER MOUTH DOWN. TURNED TV ON PER PT REQUEST AND PT SEEMS LESS AGITATED. PT HAS RASH TO TRUNK AND INTO ARM PITS. PERIAREA IS RED, PLACING NYSTATIN POWDER PRN. NO SIGN OF DISTRESS AT THE MOMENT. SEE ASSESSMENT.
[2019-05-27 05:20] LABS: BASOPHILS ABSOLUTE AUTO 0.03 K/mm3 (0.00-0.23); BASOPHILS PERCENT AUTO 0 % (0-2); EOSINOPHILS ABSOLUTE AUTO 0.58 K/mm3 (0.00-0.68); EOSINOPHILS PERCENT AUTO 7 % (0-6); Hematocrit 26.2 % (33.0-51.0); Hemoglobin 8.3 g/dL (11.5-16.0); IMMATURE GRAN ABSOLUTE AUTO 0.18 K/mm3 (0.00-0.10); IMMATURE GRAN PERCENT AUTO 2 % (0-1); LYMPHOCYTES ABSOLUTE AUTO 1.22 K/mm3 (0.84-5.20); LYMPHOCYTES PERCENT AUTO 15 % (21-46); MONOCYTES PERCENT AUTO 9 % (4-13); Mean Corpuscular HGB 31.1 pg (26.0-34.0); Mean Corpuscular HGB Conc 31.7 g/dL (31.5-36.5); Mean Corpuscular Volume 98 fL (80-100); Mean Platelet Volume 10.4 fL (9.1-12.4); NEUTROPHILS ABSOLUTE AUTO 5.36 K/mm3 (1.96-9.15); NEUTROPHILS PERCENT AUTO 66 % (41-73); Platelet Count 216 K/mm3 (150-400); RDW Coefficient Variation 17.2 % (11.7-14.2); RDW Standard Deviation 61.2 fL (35.1-46.3); Red Blood Cell Count 2.67 M/mm3 (3.80-5.20); White Blood Cell Count 8.07 K/mm3 (4.00-11.30)
[2019-05-27 05:40] LABS: Alanine Aminotransfer (ALT/SGP 41 U/L (12-78); Albumin, Blood 1.4 g/dL (3.4-5.0); Albumin/Globulin Ratio 0.3 (0.8-1.8); Alk Phos 62 U/L (50-136); Anion Gap 4 mmol/L (6-16); Aspartate Aminotrans (AST/SGOT 49 U/L (12-37); Bilirubin, Total 0.3 mg/dL (0.1-1.0); Blood Urea Nitrogen 19 mg/dL (8-24); Bun/Creatinine Ratio 42.6 (12.0-20.0); CO2, Blood 30 mmol/L (21-32); Calcium, Blood 8.2 mg/dL (8.5-10.1); Chloride, Blood 105 mmol/L (98-108); Creatinine, Blood 0.45 mg/dL (0.40-1.00); Globulin, Blood 4.6 g/dL (2.2-4.0); Glomerular Filtration Rate >60 (60-); Glucose, Blood 104 mg/dL (70-99); Phosphorus, Blood 4.4 mg/dL (2.5-4.9); Potassium, Blood 3.6 mmol/L (3.5-5.5); Sodium, Blood 139 mmol/L (136-145)
--- NOTE | 2019-05-27 06:32 | NUR ---
SUMMARY PT INTUBATED, NO SEDATION. MORE ALERT THIS AM. ABLE TO FOLLOW COMMANDS TO [employer]IDENT[employer]IENCES WITH R HAND, MOVES FEET AND LEGS, AND IS GROSSLY MOVING L ARM. PT IS ABLE TO NOD YES OR NO TO QUESTIONS. PT GAGS ON ETT AT TIMES. CLAMPS MOUTH DOWN WITH ORAL CARE. HAS BEEN TOLERATING PS VENT SETTINGS. GAVE FENTANYL FOR PAIN A COUPLE TIMES AND BENADRYL FOR RASH THAT IS ON TRUNK. NO SIGN OF DISTRESS THIS AM, WATCHING TV, NO RESTRAINTS.
--- NOTE | 2019-05-27 08:19 | NUR ---
ASSUMED CARE OF PT AT 0700. BEDSIDE REPORT FROM JAKE RICKETTS. PT INTUBATED, VENT SETTINGS, SPONT PS 10/5/30%. LUNGS COARSE THROUGHOUT, DIMINISHED IN BASES. PT OPENS EYES SPONTANEOUSLY. TRACKS STAFF. NODS TO YES/NO QUESTIONS. FOLLOWS SIMPLE COMMANDS, LACTATION NURSE c RIGHT HAND, GROSS MOVEMENT TO LEFT HAND, MOVES LOWER EXTREMITIES. BILATERAL FOOT DROP. TUBE FEEDINGS, PIVOT 1.5 AT GOAL OF 45 ML/HR c 200ML q 4 HR FLUSHES. ABD DISTENDED, SOFT, NON TENDER. BT X 4. MONTES PATENT AND DRAINING CLEAR YELLOW URINE. RECTAL TUBE IN PLACE, PATENT, DRAINING TO GRAVITY. LOOSE BROWN STOOL. PICC TO E, PATENT. DRESSING C/D/I. VSS. WILL CONTINUE TO MONITOR.
--- NOTE | 2019-05-27 09:40 | NUR ---
DR PRUITT IN ROOM FOR ASSESSMENT. REVIEWED RESP STATUS, PLAN FOR POSSIBLE EXTUBATION. PT FOLLOWING COMMANDS. STRONG COUGH, GAG REFLEX. VENT SETTINGS CHANGED TO SPONT 5/5/30%. LASIX 20 MG IVP GIVEN. DAUGHTER UPDATED BY PHONE BY DR PRUITT.
--- NOTE | 2019-05-27 14:09 | NUR ---
PT EXTUBATED AT 1215. PLACED ON 4L O2 VIA NC PLACED IN MOUTH D/T MOUTH BREATHING. PT TOLERATED WELL. STRONG COUGH. MINIMAL SECRETIONS. O2 SATS REMAIN >95%. LUNGS UNCHANGED, CONTINUE TO BE COARSE AND DIMINISHED IN BASES. PT c WEAK VOICE. DISORIENTED. ATTEMPTED TO REORIENT. ENCOURAGED PT TO FOCUS ON BREATHING. VSS. WILL CONTINUE TO MONITOR.
--- NOTE | 2019-05-27 17:37 | NUR ---
SHIFT SUMMARY PT EXTUBATED THIS SHIFT. ON 4L VIA NC. LUNGS CONTINUE TO BE COARSE AND DIMINISHED IN BASES. STRONG COUGH. WEAK VOICE. PT MOANS AND SAYS SHORT PHRASES. APPEARS TO UNDERSTAND SIMPLE COMMANDS, DIFFICULTY ANSWERING COMPLEX QUESTIONS. MOVING ALL EXTREMITIES. VSS. MONTES REMAINS IN PLACE, DRAINING CLEAR YELLOW URINE TO GRAVITY. RECTAL TUBE IN PLACE, SCANT AMOUNT OUT THIS SHIFT. WILL CONTINUE TO MONITOR AND REPORT TO ONCOMING NURSE.
--- NOTE | 2019-05-27 20:00 | NUR ---
SHIFT ASSMENT PT IS ALERT AT THIS TIME. SHE IS NOT ABLE TO VERBALLY SAY HER NAME AND SEEMS ANXIOUS WITH ALL CARE. SHE DOES YELL OUT WITH TURNING. WORDS ARE CLEAR AT THAT TIME. VITALS ARE STABLE CURRENTLY. PT WAS TURNED AT THIS TIME. FLEXISEAL NOT IN PLACE DUE TO LOW TONE. REPLACED AT THIS TIME AND PT TOLERATED THIS WELL. MONTES CATH CON'T TO BE IN PLACE DRAINING YELLOW URINE. PT DOES HAVE VERY REDDED AREA IN GROIN AND FOLDS. CREAM APPLIED TO GROIN. WILL CON'T TO CLEAN AND CREAM GROIN. PICC LINE CON'T TO BE IN PLACE AND PATENT. NS RUNNING TKO. SEE EMAR FOR ALL OTHER MEDICATIONS ADMINISTERED. WILL CON'T TO MONITOR PT T/O SHIFT AND KEEP SAFE. WILL CON'T TO TURN PT INDICATED.
--- NOTE | 2019-05-28 01:07 | NUR ---
ASSESSMENT PT CON'T TO BE STABLE. SHE IS ABLE TO SPEAK CLEAR WORDS, BUT DOES NOT FORMULATE A CLEAR SENTENCE. SHE APPEARS TO BE ANXIOUS MOST OF THE TIME. SHE WIGGLES HER LEGS AND MOVES HER ARMS AROUND. PT ALSO MOVES HER HEAD AROUND CONSTANTLY. ORAL CARE WAS DONE, BUT DID NOT APPEAR TO LIKE THIS. SHE WAS YELLING STOP AND SHAKING HER HEAD. RECTAL TUBE CON'T TO BE IN PLACE AND DRAINING. WILL CON'T TO MONITOR PT T/O SHIFT.
--- NOTE | 2019-05-28 06:08 | NUR ---
SHIFT SUMMARY PT CON'T TO HAVE NO CHANGES TO HER BASELINE. SPEECH PATTERN HAS NOT CHANGED T/O SHIFT. PT DOES HAVE A PREFERED SIDE OF RESTING. SHE APPEARS TO BE MORE CALM AND RESTFUL WHEN TURNED TOWARDS HER RIGHT SIDE. WHEN ON HER LEFT SHE IS MORE AGGITATED AND ANXIOUS. PICC LINE CON'T TO BE CDI AND PATENT. MONTES CATH IN PLACE DRAINING YELLOW URINE. FLEXISEAL HAS REMAINED IN PLACE SINE INITIAL REPLACEMENT AT START OF SHIFT. PT DID NOT HAVE A LARGE AMOUT OF OUTPUT FROM THE FLEXISEAL. VITALS CON'T TO BE STABLE. WILL CON'T TO MONITOR PT TILL REPORT TO ONCOMING RN. SPOKE WITH DAUGHTER THIS AM ABOUT PT'S CONDITION.
--- NOTE | 2019-05-28 08:45 | NUR ---
AM NOTE... ASSUMED CARE OF PT APROX 0700, PT IS A&O TO SELF AND FOLLOWING DIRECTIONS AT TIMES. PT'S VS STABLE AT THIS TIME. PT IS ON NC AT 4L WITH O2 SATS >95%, THIS WAS TITRATED DOWN TO 3L NC AND WILL CONTINUE TO TITRATE. L/S COARSE T/O DIM IN THE BASES. BT PRESENT AND HYPOACTIVE, ABD SOFT AND NONTENDER TO PALP. HR R IN THE 70'S-90'S. PT IS WIGGLING AND THRASHING AROUND IN THE BED, PT WILL LOOK AT STAFF IF ASKED TO BUT YELLS OUT AND THRASHES AWAY FROM PATIENT CARE. CALL LIGHT IN REACH WILL CONTINUE TO MONITOR.
--- NOTE | 2019-05-28 11:32 | NUR ---
PT UPDATE... RECTAL TUBE HAS BEEN REMOVED D/T PT'S THRASHING MOVEMENTS IN THE BED, PT'S RECTAL TONE IS VERY MINIMAL AT THIS TIME, AND VERY MINIMAL AMOUNT OF STOOL IN THE BAG, CALLED PROVIDER AND THE DECISION WAS MADE TO D/C IT.
--- NOTE | 2019-05-28 13:56 | NUR ---
PT UPDATE... PT AWAKE AND ALERT AND ABLE TO ANSWER SOME SIMPLE QUESTIONS, PT HAS BEEN CALLING OUT AND MOANING MORE THIS AFTERNOON. NEW CRACKLES NOTED TO THE LLL PT HAS BEEN TITRATED FROM 4L NC TO 2L NC WITH O2 SATS AT 91-95% NC IS IN THE PT'S MOUTH D/T MOUTH BREATHING. PT WAS SEEN BY SPEECH THERAPY TODAY AND WAS PLACED ON NPO STATUS WITH Q4 ORAL CARE. WILL CONTINUE TO MONIOR
--- NOTE | 2019-05-28 14:44 | NUR ---
PT UPDATE... PT UP IN RECLINER CHAIR USING THE LIFT, PT TOLERATED THIS WELL. PT MEDICATED FOR PAIN WITH GOOD RESULTS. PT'S HAIR WAS WASHED, BRUSHED AND BRAIDED.
--- NOTE | 2019-05-28 17:28 | NUR ---
SHIFT SUMMARY.... NO ACUTE NEGATIVE CHANGES NOTED THIS SHIFT. PT HAS BEEN TITRATED FROM 4L TO 2L NC WITH O2 SATS >90%. PT HAS BEEN REACTING SURPRISED AND SCARED TO TOUCH AND ATTEMPTS AT GIVING CARE, PT HAS BEEN CLAMPING DOWN ON THE ORAL SWAB DURING ORAL CARE. PT WAS UP IN THE RECLINER CHAIR VIA LIFT FOR APROX 2 HOURS THIS SHIFT. THIS AFTERNOON THE PT STARTED C/O OF PAIN, MOANING AND SAYING "OW OW OW MY LEGS MY LEGS MY POOR BABY LEGS." NON-NARCOTIC PAIN INTERVENTIONS LIKE WARM BLANKETS AND REPOSITIONING DID NOT HELP HER CALLING OUT. PROVIDER WAS CALLED AND NEW ORDERS OBTAINED FOR PAIN CONTROL. PT'S GROIN AREA IS VERY RED AND EXCORIATED, GOOD LEDY CARE AND SKIN CARE WAS PROVIDED T/O SHIFT. CATH CARE DONE MULTIPLE TIMES WELL D/T RECTAL TUBE LEAKING, THE RECTAL TUBE WAS D/C'D PER DR. PRUITT AFTER IT CAME OUT. PT'S NIECE AND MOTHER CALLED THIS AFTERNOON, THE NIECE SAID TO THIS RN: " WE DEMAND TO KNOW WHAT IS GOING ON WITH FADIA! THIS IS HER MOTHER HERE AND SHE DESERVES TO KNOW THE TRUTH EVERYONE IS GIVING US A DIFFERENT STORY!" THIS RN GAVE THEM AN UPDATE OF THE PT'S CONDITION AND TRANSFER TO PCU STATUS. NEITHER WOMEN COULD ARTICULATE WHAT THEY HAD BEEN TOLD THAT WAS NOT THE TRUTH OR WHAT THEY HAD BEEN TOLD WAS DIFFERENT FROM WHAT THIS RN HAD TOLD THEM. CALL LIGHT IN REACH WILL CONTINUE TO MONITOR UNTIL REPORT IS GIVEN TO ONCOMING RN.
[2019-05-29 04:47] LABS: BASOPHILS ABSOLUTE AUTO 0.03 K/mm3 (0.00-0.23); BASOPHILS PERCENT AUTO 0 % (0-2); EOSINOPHILS ABSOLUTE AUTO 0.83 K/mm3 (0.00-0.68); EOSINOPHILS PERCENT AUTO 11 % (0-6); Hemoglobin 9.2 g/dL (11.5-16.0); IMMATURE GRAN ABSOLUTE AUTO 0.08 K/mm3 (0.00-0.10); IMMATURE GRAN PERCENT AUTO 1 % (0-1); LYMPHOCYTES ABSOLUTE AUTO 1.13 K/mm3 (0.84-5.20); LYMPHOCYTES PERCENT AUTO 15 % (21-46); MONOCYTES ABSOLUTE AUTO 0.64 K/mm3 (0.16-1.47); MONOCYTES PERCENT AUTO 9 % (4-13); Mean Corpuscular HGB 30.7 pg (26.0-34.0); Mean Corpuscular HGB Conc 31.7 g/dL (31.5-36.5); Mean Corpuscular Volume 97 fL (80-100); Mean Platelet Volume 9.6 fL (9.1-12.4); NEUTROPHILS ABSOLUTE AUTO 4.82 K/mm3 (1.96-9.15); NEUTROPHILS PERCENT AUTO 64 % (41-73); Platelet Count 207 K/mm3 (150-400); RDW Standard Deviation 56.6 fL (35.1-46.3); White Blood Cell Count 7.53 K/mm3 (4.00-11.30)
[2019-05-29 05:10] LABS: Anion Gap 5 mmol/L (6-16); Blood Urea Nitrogen 16 mg/dL (8-24); Bun/Creatinine Ratio 32.6 (12.0-20.0); CO2, Blood 31 mmol/L (21-32); Calcium, Blood 8.5 mg/dL (8.5-10.1); Chloride, Blood 104 mmol/L (98-108); Creatinine, Blood 0.49 mg/dL (0.40-1.00); Glomerular Filtration Rate >60 (60-); Glucose, Blood 97 mg/dL (70-99); Magnesium, Blood 1.9 mg/dL (1.6-2.4); Potassium, Blood 3.2 mmol/L (3.5-5.5); Sodium, Blood 140 mmol/L (136-145)
--- NOTE | 2019-05-29 05:57 | NUR ---
PT HAS TOLERATED Q 2 HOUR TURNS FAIR THROUGHOUT THE NIGHT. EMOTIONALLY LABILE THIS SHIFT. DURING SAME ENCOUNTER, PT WOULD SMILE, GIGGLE, AND THEN CRY. REASSURANCE GIVEN. PT INDICATED THAT HER "EAR" HURT. PLACED FOAM TUBE COVERINGS TO PROTECT SKIN. PT HAS BEEN MEDICATED ONCE WITH 50 MCG'S FENTANYL FOR MOANING AND PT STATING, "OW, OW, OW" PT WOULD NOT INDICATED HER PAIN. WAS VERY RESTLESS. AFTER FENTANYL, PT CALMS. IS ABLE TO MOVE ABOUT SOME IN BED. NO FURTHER MOANING OR VERBALIZING PAIN. PT HAS OXYGEN TO HER MOUTH SECONDARY TO MOUTH BREATHING. HAS BEEN ABLE TO MAINTAIN > 90 PERCENT SATURATIONS. WILL CONTINUE TO MONITOR PT, AND WILL REPORT OFF TO ONCOMING RN.
--- NOTE | 2019-05-29 08:00 | NUR ---
ASSUMED CARE RECEIVED REPORT FROM LILIAM LEOS. PT IS LYING IN BED ON 4L NC (VIA MOUTH). SHE IS ALERT AND ANXIOUS, BUT NOT ORIENTED. SHE COULDNT TELL ME HER NAME, WHERE SHE WAS AT AND WHY. SHE WAS HARDLY ABLE TO RESPOND TO ME, JUST REPEATING THE PHRASE "HELP", AND WOULDNT TELL ME WHY. SHE JUST LOOKS ALL OVER THE ROOM. SHE HAS A PATENT MONTES CATHETER DRAINING MIKEL URINE. SHE HAS CLINIMIX INFUSING AT 100ML/HR. BED LOW AND LOCKED.
--- NOTE | 2019-05-29 10:40 | NUR ---
PT OUT OF ROOM TO GET HEAD CT WITH IMAGING RUNNER
--- NOTE | 2019-05-29 11:07 | NUR ---
PT BACK FROM CT. STABLE VITALS. 4L NC, SATS 94%. BACK ON MONITOR FROM TELE BOX.
--- NOTE | 2019-05-29 18:39 | NUR ---
SHIFT SUMMARY PT HAD A MISERABLE DAY BEING ANXIOUS AND CONFUSED. NOT USING ANY SENSICAL WORDS, AND NOT RESPONDING TO ME. I WAS TOLD BY DR KEATING TO BE SPARING WITH THE ATIVAN, SHE RECEIVED TWO DOSES TODAY 1MG PRIOR TO HER CT AND 0.5MG A FEW HOURS AGO D/T BEING EXTREEMELY RESTLESS AND DYSPNEIC. SHE REQUIRES 2-4L NC VIA MOUTH (MOUTH BREATHER) AND SATS LOW - MID 90'S. SHE HAD A BATH TODAY. SHE HAD ADEQUATE URINE OUTPUT. BED IS LOW AND LOCKED. DR. KEATING UPDATED DAUGHTER TODAY.
--- NOTE | 2019-05-30 01:04 | NUR ---
ORAL SUCTIONING SET UP AT BEDSIDE.
[2019-05-30 04:29] LABS: BASOPHILS ABSOLUTE AUTO 0.04 K/mm3 (0.00-0.23); BASOPHILS PERCENT AUTO 0 % (0-2); EOSINOPHILS ABSOLUTE AUTO 0.86 K/mm3 (0.00-0.68); EOSINOPHILS PERCENT AUTO 10 % (0-6); Hemoglobin 9.5 g/dL (11.5-16.0); IMMATURE GRAN ABSOLUTE AUTO 0.07 K/mm3 (0.00-0.10); IMMATURE GRAN PERCENT AUTO 1 % (0-1); LYMPHOCYTES ABSOLUTE AUTO 1.17 K/mm3 (0.84-5.20); LYMPHOCYTES PERCENT AUTO 13 % (21-46); MONOCYTES ABSOLUTE AUTO 0.69 K/mm3 (0.16-1.47); MONOCYTES PERCENT AUTO 8 % (4-13); Mean Corpuscular HGB 31.3 pg (26.0-34.0); Mean Corpuscular HGB Conc 32.8 g/dL (31.5-36.5); Mean Corpuscular Volume 95 fL (80-100); Mean Platelet Volume 9.7 fL (9.1-12.4); NEUTROPHILS ABSOLUTE AUTO 6.07 K/mm3 (1.96-9.15); NEUTROPHILS PERCENT AUTO 68 % (41-73); Platelet Count 199 K/mm3 (150-400); RDW Coefficient Variation 15.5 % (11.7-14.2); RDW Standard Deviation 53.7 fL (35.1-46.3); Red Blood Cell Count 3.04 M/mm3 (3.80-5.20)
[2019-05-30 04:58] LABS: Alanine Aminotransfer (ALT/SGP 29 U/L (12-78); Albumin, Blood 1.7 g/dL (3.4-5.0); Albumin/Globulin Ratio 0.3 (0.8-1.8); Alk Phos 67 U/L (50-136); Anion Gap 6 mmol/L (6-16); Aspartate Aminotrans (AST/SGOT 27 U/L (12-37); Bilirubin, Total 0.3 mg/dL (0.1-1.0); Blood Urea Nitrogen 22 mg/dL (8-24); Bun/Creatinine Ratio 53.8 (12.0-20.0); CO2, Blood 30 mmol/L (21-32); Calcium, Blood 8.5 mg/dL (8.5-10.1); Chloride, Blood 103 mmol/L (98-108); Creatinine, Blood 0.41 mg/dL (0.40-1.00); Globulin, Blood 5.5 g/dL (2.2-4.0); Glomerular Filtration Rate >60 (60-); Glucose, Blood 108 mg/dL (70-99); Potassium, Blood 3.5 mmol/L (3.5-5.5); Sodium, Blood 139 mmol/L (136-145); Total Protein, Blood 7.2 g/dL (6.4-8.2)
--- NOTE | 2019-05-30 06:14 | NUR ---
SHIFT SUMMARY LYING IN SEMI FOWLERS WITH EYES CLOSED. HAS FIDGETTED IN THE BED WITH SPASTIC MOVEMENTS THIS SHIFT. MONTES BECAME CLOGGED AND REQUIRED IRRIGATION WITH 10ML NS. FULL LINEN CHANGE AND PARTIAL BATH COMPLETED DUE TO LEAKAGE AROUND MONTES CATH, TOLERATED WELL. LEFT UPPER ARM PICC LINE NOTED WITH 3 LUMEN. RED LUMEN WITH CLINIMIX INFUSING, MERA AND BROWN LUMENS ARE SL. MONTES CATH DRAINING MIKEL/PINK FLUID WITH SEDIMENT TO GRAVITY WELL SINCE IRRIGATION EARLIER THIS SHIFT. PT DESATTED WITH NC IN PLACE, O2 INCREASED HIGH IT WOULD GO FOR RECOVERY. RT CALLED TO BEDSIDE AND RECOMENDED PLACING HER ON HIGH FLOW AT 10L. PLACED NRB ON TABLE OUTSIDE PT'S ROOM FOR USE IF NEEDED. ALSO RECOMENDED THAT IF FAMILY WANTS TO GET MORE AGRESSIVE, THEN PT COULD BE PLACED ON BIPAP. SAFETY MEASURES IN PLACE. WILL GIVE HAND OFF TO ONCOMING SHIFT USING SBAR DURING BEDSIDE REPORT.
--- NOTE | 2019-05-30 09:00 | NUR ---
PT ALERT BUT NOT ABLE TO FOLLOW ANY COMMANDS. VERY RESTLESS AND ANXIETY NOTED. MOVES UPPER EXT'S ON OWN, BUT WEAK. GENERALIZED WEAKNESS. RESPIRATORY STATUS CONTINUES TO BE LABILE. CAMMY FLOW OXYGEN 10L NC IN PLACE WITH SATS >90% WHEN RESTING. DECREASE SATS WHEN INCREASE ANXIETY NOTED. REASSURENCE GIVEN AND REPOSTION FOR COMFORT. PT REMAINS NPO STATUS BUT RECEIVING NUTRITION VIA IV. CONTINUE TO MONITOR AND TX PER ORDERS.
--- NOTE | 2019-05-30 14:50 | NUR ---
MEDICATED WITH FENTANYL 50MC IV FOR COMFORT. RESTLESS IN BED. GOOD RELIEF WITH MED, RESTING COMFORTABLE. CONTINUE TO TX PRN.
--- NOTE | 2019-05-30 17:08 | NUR ---
SHIFT SUMMARY MEDICATED WITH FENTANYL 50MCG IV THIS MID AFTERNOON, TOLERATED WELL. DECREASE ANXIETY NOTED AND RESTED COMFORTABLY. SATS REMAIN >90%. LOW GRADE TEMP 100.8, BP STABLE. LUNGS LESS CONGESTED THIS AFTERNOON. MONTES PATENT. UPDATED FAMILY TODAY WITH STATUS AND PROGRESS. REMAINS NPO STATUS BUT RECEIVING IV NUTRITION. CONTINUE TO MONITOR AND TX AND WILL SIGN OFF TO NOC SHIFT.
--- NOTE | 2019-05-30 18:33 | NUR ---
TRANSFERRING PATIENT TO PCU 1. REPORT GIVEN TO ANG OSULLIVAN RN.
--- NOTE | 2019-05-31 09:15 | NUR ---
SUMMARY PT HAS DONE OKAY THROUGH THE NIGHT. SHE STARTED ON HIGH FLOW NC @10 L, SHE IS CURRENTLY ON 6 L. CONTINUOUS BIOX IN PLACE. 1 MG IV ATIVAN WAS GIVEN X2. PT'S O2 SATS WILL DECREASE AND RESP WILL INCREASE WHEN SHE BECOMES ANXIOUS, SOON SHE CALMS DOWN SHE WOULD BE 93-95%. Q2 TURNS PROVIDED. MONTES PATENT. ORAL CARE WAS DONE. PT WILL FIGHT AT FIRST BUT STARTED TO COOPERATE TOWARDS THE END OF THE NIGHT. BED ALARM ON FOR SAFETY. CALL LIGHT IN REACH.
--- NOTE | 2019-05-31 14:22 | NUR ---
PAL CARE CASE CONFERENCE w/ RN, ST, DIETITIAN, , CM, Hospice, & NAHEED ZAMORA. Multiple phone calls with Munira, and discussions with above staff r/t pt's current status and prognosis, family wishes/goals of care at this time. After several phone calls, gathering information for munira, Naheed directs us to place her mom on comfort care due to continued persistent encephalopathy and ongoing respiratory compromise, dysphagia. They would like to bring Faiza home, to her mother's home on hospice if possible. CM and home health clinical liaison upated. Family does not have an agency of choice but would like the agency that can get Faiza out of the hospital as fast as possible. Family aware that if pt progresses in dying process rapidly that we would not want to move her. Plan to assist with comfort care, s/s management support. CM, Hospice and pt's RN updated after comfort care orders obtained from and entered.
--- NOTE | 2019-05-31 18:31 | NUR ---
PT SUMMARY: PT TRANSITION TO COMFORT CARE FOR THE SHIFT WITH PALLIATIVE CONSULT INVOLVED. PT WAS NOT PARTICIPATING GOOD WITH THERAPY, NOT FOLLOWING DIRECTIONS. PT RESPONDS TO VERBAL STIMULI, MOANS AND MOVES UPPER EXTREMITIES OFTEN ESPECIALLY WHEN DOING CARE, NOT COMBATIVE BUT SLIGHTLY RESISTIVE. PAIN MEDS GIVEN X2 PRIOR TO REPOSITIONING AND DOING CARE, ATIVAN GIVEN X 2 PT WAS TRYING TO PULL OXYGEN CANNULA OFF. MEDICATIONS DISCONTINUED EXCEPT FOR COMFORT MEDS. PLAN TO DC PT TO HOME WITH HOSPICE CARE INVOLVED. FAMILY (DAUGHTER) IS AWARE OF PT'S CURRENT CONDITION. PT NOW RESTING IN BED CALL LIGHTS WITHIN REACH, WILL GIVE REPORT TO ONCOMING SHIFT.
--- NOTE | 2019-06-01 06:04 | NUR ---
SHIFT SUMMARY PATIENT SLEPT OFF AND ON THROUGH THE NIGHT. PAIN/ANXIETY WAS BEST CONTROLLED WITH ROXANOL. KEPT COMFORTABLE THROUGH THE NIGHT. WILL CONTINUE TO MONITOR.
--- NOTE | 2019-06-01 09:27 | NUR ---
PT RESTING IN BED, SLIGHTLY RESTLESS, NON VERBAL WITH STAFF. PT REPOSITIONED AND TURNED TO RIGHT SIDE WITH PILLOW SUPPORT. PT CONTINUES TO HAVE 02 ON FOR COMFORT. MONTES IN PLACE AND DRAINING SMALL AMOUNT OF URINE.
--- NOTE | 2019-06-01 10:58 | NUR ---
COMFORT CARE CASE CONFERENCE WITH PT'S RN & CM - Please see carbon grinder for s/s noted. Pt has been medicated per eMAR prn pain and anxiety. RN feels pt's s/s are well managed with current medications. Plan is for transfer to pt's mother's home to the care of her daughter and mother with Hospice f/u tomorrow am.
--- NOTE | 2019-06-01 11:54 | NUR ---
PT SLIGHTLY AGGITATED, MEDICATED WITH ATIVAN 1MG IV. RESTING COMFORTABLY AT THIS TIME.
--- NOTE | 2019-06-01 12:30 | NUR ---
PT TURNED AND REPOSITIONED ON R SIDE WITH PILLOWS. APPEARS TO BE RESTING COMFORTABLY.
--- NOTE | 2019-06-01 14:05 | NUR ---
Pt resting comfortably at this time.
--- NOTE | 2019-06-01 18:27 | NUR ---
TRANSFER OF CARE REPORT GIVEN TO BRYN RICKETTS ON MEDICAL FLOOR. PT WAS TRANSFERRED TO ROOM 354 VIA BED. BELONGINGS GATHERED AND TRANSPORTED WITH PT. PT REMAINS ON 6L O2. PT WAS REPOSITIONED AND TURNED PRIOR TO TRANSPORT. MONTES REMAINS IN PLACE AND IS DRAINING.
--- NOTE | 2019-06-01 18:29 | NUR ---
PT TRANSFERRED TO ROOM 354 FROM PCU BY BED. AWAKE AND ALERT AND WAS MOVING ABOUT RESTLESSLY IN THE BED. MEDICATED WITH ROXANOL AND ATIVAN. O2 TUBING REMAINS IN MOUTH WITH PT GRIPPING IT IN HER TEETH.
--- NOTE | 2019-06-02 04:06 | NUR ---
SHIFT SUMMARY: PT IS ALERT, NON-VERBAL. PT FAIRLY RESTLESS FOR THE FIRST HALF OF THE NIGHT, MEDICATING WITH ROXINOL AND ATIVAN NEEDED. MONTES PATENT AND DRAINING. O2 FOR COMFORT. PT SEEMS MORE RESTFULL AT THIS TIME. BED IN LOW POSITION, WILL CONTINUE WITH COMFORT MEASURES AND REPORT TO DAY NURSE.
--- NOTE | 2019-06-02 08:39 | NUR ---
ATTEMPTED TO FEED PT BREAKFAST, PT REFUSED, KEPT TURNING AWAY. WILL MONITOR
--- NOTE | 2019-06-02 11:43 | NUR ---
PT WITH SECRETIONS, GURGLE AND COUGH. SUCTIONED BY THIS RN AND RESP THERAPY. SECRETIONS CLEARED AND PT BREATHING IS CLEAR AT THIS TIME
--- NOTE | 2019-06-02 11:44 | NUR ---
DISCHARGE PT DISCHARGED HOME ON HOSPICE, TAKEN HOME BY [facility] BY RENALDO.
== END 2019-06-02 11:40 | disposition hospice, home (50) | DRG 870 ==
LOC: ER 10:16 → ICUW 12:12 → PCU 05-30 18:25 → MEDS 06-01 18:12
PROVIDERS: Emergency Medicine; Internal Medicine; Internal Medicine Critical Care Medicine; Internal Medicine Pulmonary Disease; Pharmacist; ADMIT Family Medicine
PROC: 02HV33Z Insertion of Infusion Device into Superior Vena Cava, Percutaneous Approach (ICD-10-PCS; 2019-05-12)
PROC: B548ZZA Ultrasonography of Superior Vena Cava, Guidance (ICD-10-PCS; 2019-05-12)
PROC: 5A1955Z Respiratory Ventilation, Greater than 96 Consecutive Hours (ICD-10-PCS; principal; 2019-05-13)
PROC: 0BH17EZ Insertion of Endotracheal Airway into Trachea, Via Natural or Artificial Opening (ICD-10-PCS; 2019-05-13)
PROC: 0DH67UZ Insertion of Feeding Device into Stomach, Via Natural or Artificial Opening (ICD-10-PCS; 2019-05-13)
PROC: 0W9930Z Drainage of Right Pleural Cavity with Drainage Device, Percutaneous Approach (ICD-10-PCS; 2019-05-15)
DX: A40.3 Sepsis due to Streptococcus pneumoniae (principal); J96.01 Acute respiratory failure with hypoxia; R65.21 Severe sepsis with septic shock; G92 Toxic encephalopathy; J13 Pneumonia due to Streptococcus pneumoniae; J93.9 Pneumothorax, unspecified; D62 Acute posthemorrhagic anemia; Z51.5 Encounter for palliative care; Z66 Do not resuscitate; E87.0 Hyperosmolality and hypernatremia; J44.0 Chronic obstructive pulmonary disease with (acute) lower respiratory infection; N17.9 Acute kidney failure, unspecified; E87.2 Acidosis; B97.4 Respiratory syncytial virus as the cause of diseases classified elsewhere; B97.29 Other coronavirus as the cause of diseases classified elsewhere; F31.9 Bipolar disorder, unspecified; K21.9 Gastro-esophageal reflux disease without esophagitis; F41.1 Generalized anxiety disorder; F41.0 Panic disorder [episodic paroxysmal anxiety]; G40.909 Epilepsy, unspecified, not intractable, without status epilepticus; B18.2 Chronic viral hepatitis C; R13.12 Dysphagia, oropharyngeal phase; G89.4 Chronic pain syndrome; E88.09 Other disorders of plasma-protein metabolism, not elsewhere classified; E11.40 Type 2 diabetes mellitus with diabetic neuropathy, unspecified; F17.210 Nicotine dependence, cigarettes, uncomplicated; E87.6 Hypokalemia; E86.9 Volume depletion, unspecified; T36.1X5A Adverse effect of cephalosporins and other beta-lactam antibiotics, initial encounter; Z78.1 Physical restraint status
CPT/HCPCS: 0099U; 31720; 32551; 36415; 36569; 36600; 51702; 70450; 71045; 80048; 80053; 80202; 81001; 82330; 82533; 82803; 82947; 83605; 83735; 83880; 84100; 84132; 84484; 85007; 85025; 85027; 85610; 85730; 87040; 87070; 87075; 87086; 87186; 87205; 89051; 92526; 92610; 93005; 93010; 94002; 94003; 94640; 94660; 94760; 96361-59; 96365-59; 96366-59; 96367-59; 96368; 96372-59; 97110; 97163; 97167; 99285-25; A9270; C1751; C9113; G0480; J0696; J1650; J1720; J1940; J1956; J2060; J2543; J2704; J2765; J3010; J3370; J3475; J3480; J7030; J7050; J7060; J7120; Q0163